=== PATIENT | female | born 1955 | race Caucasian/White ===

== ENCOUNTER 2018-04-17 17:25 | Outpatient (REF) | payer BC, SELFPAY ==
--- NOTE | 2018-04-17 16:00 | PAPFT_PTH ---
PATIENT: Kaila Pascual [facility]: [facility] U#:[id number] AGE/SX: 62/F ROOM: RE04/17/[address]: Thania Carroll : 1955 BED: DIS: 04/17/2018 SPEC #: [id number] RECD: 04/17/18 17:55 STATUS: DARIA RELincoln #: [id number] SOPHIE: 04/17/18 16:[address]: Thania Carroll DEPT: [facility] Cytology RECD BY: Kaila Crump ENTERED: 04/17/18 17:55 SP TYPE: PAPFT OTHR DR: Mónica Vieira Tissues: 1 - CX/ENDOCX FOR PAP SMEARS Procedures: PAP THIN PREP/UVM Screening HPV DNA PROBE Comments: [id number]
== END 2018-04-17 17:45 ==
LOC: NCHCN 17:25
PROVIDERS: PCP Family Medicine; Visit Provider Nurse Practitioner Family
DX: Z00.00 Encounter for general adult medical examination without abnormal findings (principal); Z12.4 Encounter for screening for malignant neoplasm of cervix; Z11.51 Encounter for screening for human papillomavirus (HPV)
CPT/HCPCS: 88142; 87624

== ENCOUNTER 2018-10-15 08:30 | Emergency (ER) | payer BC, SELFPAY ==
[2018-10-15 08:34] VITALS: BP 159/82; PULSE 79; RESP 14; TEMP 36.1; O2SAT 97
--- NOTE | 2018-10-15 08:52 | ED.GENADUL_ITS ---
Discharge Plan Disposition Patient Disposition: HOME Condition: Good Discharge Details Chief Complaint: FlankPain Clinical Impression: Acute UTI Primary Care Provider: Thania Carroll ED Provider: Lobito Katz Home Meds and New Rx's Prescriptions: New nitrofurantoin monohyd/m-cryst [Macrobid] 100 mg capsule 100 mg PO BID 5 Days Qty: 10 RF: 0 Continued fluoxetine [Prozac] 40 MG capsule 40 mg PO DAILY RF: 0 spironolactone [Aldactone] 25 MG tablet 25 mg PO DAILY RF: 0 buspirone 10 MG tablet 10 mg PO BID RF: 0 ergocalciferol (vitamin D2) [Vitamin D2] 50,000 UNIT capsule 1 tab-cap PO DAILY RF: 0 albuterol sulfate [Ventolin HFA] 8 GM HFA aerosol inhaler 1 puff Inhalation Q6H PRN RF: 0 losartan 100 MG tablet 100 mg PO HS Qty: 30 RF: 0 Discharge Instructions Instructions: Urinary Tract Infection in Women (ED) Additional Instructions: Return to the emergency department for any new or significant worsening of symptoms, nausea vomiting fevers, or change in your pain. Otherwise take anabolic's as prescribed and for the full 5 days and feel free to follow-up with your primary care provider as needed for reassessment. Referrals: Thania Carroll [Primary Care Provider] - (As needed for reassessment) Medical Decision Making Patient presenting to the emergency department for chief complaint of right flank pain. Patient states that this is similar in nature to when she has had previous episodes of urinary tract infections. Patient reports approximately 5 days ago she started feeling not well and having some right-sided flank pain. She does state history of kidney stones but this is not been severe but more similar to her episodes of UTI which she does not have any dysuria but does have some urinary frequency. She has been using acetaminophen for some control of discomfort but today did not feel well enough to go to work so decided to p resent to the emergency department. Physical exam shows a afebrile non- tachycardic non-hypotensive patient that appears slightly uncomfortable but not ill or toxic in appearance. Physical exam is unremarkable with no CVA tenderness, no abdominal tenderness, unremarkable cardiac and respiratory exam. Given that patient has had similar symptoms in the past 2 UTI with similar presentation and no worrisome physical exam findings I do feel that urinalysis is all that is warranted initially before ordering labs or any imaging. Patient is agreeable to this and states that she would prefer not to have any CT scans unless absolutely necessary. Patient denies any need of medication pending results Review of urinalysis shows positive for leukocyte esterase but negative for nitrites. Patient does have 10-20 WBCs and some bacteria present. Reflex culture was ordered and given patient's symptoms I do feel that placing patient on antibiotic is warranted. Given the patient has no blood in her urine and no CVA tenderness I doubt infected kidney stone at this time. Close return precautions were discussed at this time with patient and patient placed upon Macrobid. After discussion of diagnosis and plan of care patient has no further needs, questions, or concerns and states clear understanding to return to the emergency department for any worsening symptoms. HPI General Mode of arrival: ambulatory . Date/Time Provider Initiated Documentation: 10/15/18 08:33 . Limitations to Documentation: no limitations . Information obtained by: patient, RN notes reviewed and old records reviewed . History of Present Illness 63 year old F presents to the emergency department with the chief complaint of Flank pain, described as moderate and similar to prior episodes, with intensity rated at 4. Quality is described as aching, and is localized to the right (Flank). Patient started experiencing this day(s) (5) and it has been constant. No relieving factors improve sym ptom(s), No exacerbating factors reported . Patient notes no other symptoms.. Patient did receive the following treatments prior to arrival, other (Acetaminophen) Related Data Home Medications Medication Instructions Recorded Confirmed albuterol sulfate [Ventolin HFA] 1 puff INHALATION Q6H PRN inhaler 04/03/15 10/15/18 NS buspirone 10 mg PO BID NS 04/03/15 10/15/18 ergocalciferol (vitamin D2) 1 tab-cap PO DAILY tab-cap NS 04/03/15 10/15/18 [Vitamin D2] fluoxetine [Prozac] 40 mg PO DAILY tab-cap NS 04/03/15 10/15/18 spironolactone [Aldactone] 25 mg PO DAILY tab-cap NS 04/03/15 10/15/18 losartan 100 mg PO HS #30 tab-cap NS 07/13/17 10/15/18 nitrofurantoin monohyd/m-cryst 100 mg PO BID 5 Days #10 cap 10/15/18 [Macrobid] Previous Rx's Medication Instructions Recorded losartan 100 mg PO HS #30 tab-cap NS 07/13/17 nitrofurantoin monohyd/m-cryst 100 mg PO BID 5 Days #10 cap 10/15/18 [Macrobid] Allergies Allergy/AdvReac Type Severity Reaction Status Date / Time amlodipine Allergy Unverified 05/13/17 17:45 atenolol Allergy Unverified 05/13/17 17:45 bupropion HCl Allergy Unverified 05/13/17 17:45 [From Wellbutrin] fosinopril sodium Allergy Unverified 05/13/17 17:45 [From Monopril] morphine Allergy Unverified 05/13/17 17:45 quinidine Allergy Unverified 05/13/17 17:45 venlafaxine HCl Allergy Unverified 05/13/17 17:45 [From Effexor] ciprofloxacin [From Cipro] AdvReac Severe Unverified 05/13/17 17:45 General Stated Complaint: FlankPain KATHRYN: 3 Review of Systems Constitutional Denies body ache(s), Denies chills, Denies fever(s) and Denies malaise Cardiovascular Denies chest pain Respiratory Reports system reviewed and no additional complaints, except as docu Gastrointestinal Denies abdominal pain, Denies nausea and Denies vomiting Genitourinary Reports as per HPI, Denies hematuria, Reports urinary frequency, Denies dysuria, Reports flank pain and Denies urinary urgency PFSH Social History Do you feel safe in your relationship?: Yes Exam Const General: cooperative and no acute distress Orientation: alert, awake and oriented x3 Resp Effort & Inspection: normal respiratory effort and able to speak in complete sentences Auscultation: clear to auscultation bilaterally Cardio Rate: regular rate Rhythm: regular rhythm Heart Sounds: S1 normal and S2 normal GI Palpation: soft, not firm, no guarding and tender suprapubicly; not at McBurney's point and Figueroa's sign negative Back/Spine/Pelvis Back: no CVA tenderness Neuro General: alert, awake and oriented x3 Extrem General: normal capillary refill Course Vital Signs Temperature 36.1 C L 10/15/18 08:34 Pulse 79 10/15/18 08:34 Respiratory Rate 14 10/15/18 08:34 Blood Pressure 159/82 H 10/15/18 08:34 Pulse Oximetry 97 10/15/18 08:34 Temperature 36.1 C L 10/15/18 08:34 Temperature Source Temporal Artery Scan 10/15/18 08:34 Pulse 79 10/15/18 08:34 Respiratory Rate 14 10/15/18 08:34 Blood Pressure 159/82 H 10/15/18 08:34 Blood Pressure Position Supine 10/15/18 08:34 Pulse Oximetry 97 10/15/18 08:34 Oxygen Delivery Method Room Air 10/15/18 08:34 Oxygen Flow Rate 0 10/15/18 08:34 Pain Level 7 10/15/18 08:34
[2018-10-15 09:14] LABS: Bilirubin Negative (Negative); Blood Negative (Negative); Clarity Clear (Clear); Glucose Negative (Negative); Ketones Negative (Negative); Leukocyte Esterase Small (Negative); Nitrite Negative (Negative); Urobilinogen 0.2 EU/dL (Up TO 0.2)
[2018-10-15 09:23] LABS: Bacteria Few HPF (Negative); C & S Indicated? Yes; Casts Negative LPF (Negative); Crystals Negative HPF (Negative); Epithelial Cells Moderate HPF (Negative); Mucus Negative (Negative); Other Cells Few Renal (Negative); RBC Negative (0-2)
[2018-10-15 09:55] VITALS: BP 136/85; PULSE 81; RESP 16; TEMP 36.7; O2SAT 98
== END 2018-10-15 10:00 | disposition home or self-care (01) ==
PROVIDERS: Emergency Provider Nurse Practitioner Family; PCP Nurse Practitioner Family
DX: N39.0 Urinary tract infection, site not specified (principal); Z87.440 Personal history of urinary (tract) infections
CPT/HCPCS: 99283; 81003; 81015; 87086

== ENCOUNTER 2018-10-17 13:38 | Emergency (ER) | payer BC, SELFPAY ==
[2018-10-17 13:52] VITALS: BP 110/64; PULSE 80; RESP 16; TEMP 36.4; O2SAT 95
--- NOTE | 2018-10-17 14:27 | DI.CT_ITS ---
SYMPTOM/DIAGNOSIS: RIGHT SIDED FLANK PAIN, UTI CT ABDOMEN AND PELVIS: CT scan of the abdomen and pelvis was performed without intravenous or oral contrast material. No acute findings are seen in the lung bases. Lack of IV contrast does limit evaluation of the abdominal and pelvic organs Comparison is 05/13/17 The unenhanced liver is grossly unremarkable. The patient is status post cholecystectomy. No biliary ductal dilatation seen. The pancreas and spleen are unremarkable as is the left adrenal gland. There is again seen a 2.5 cm fat density right adrenal nodule likely reflecting an adenoma. This is unchanged compared to the prior examination. There are bilateral nonobstructing renal stones. No ureterolithiasis or hydronephrosis is seen. There are several hypodense lesions seen within the kidneys likely reflecting cysts. These appear similar compared to the prior examination. There is a 2.5 cm lesion in the inferior pole of the right kidney medially and anteriorly. It is isodense to the renal parenchyma. Previously this area appeared cystic on the CT scan from 05/13/17 and was smaller in size. The urinary bladder is intact. The reproductive organs are unremarkable. There is atherosclerosis of the abdominal aorta but no aneurysmal dilatation is present. No significant abdominal or pelvic adenopathy, ascites or pneumoperitoneum is seen. There is an anterior abdominal wall hernia containing fat. There is diverticulosis of the colon but no evidence of acute diverticulitis. No evidence of bowel obstruction, inflammation or infection. No findings to suggest an acute appendicitis are present. A normal appendix is seen in the right lower quadrant. There is sclerosis seen at the sacroiliac joints consistent with sacral ileitis. There are degenerative changes seen in the spine. IMPRESSION: 1. No evidence of an acute abdomen. 2. 2.5 cm isoechoic mass arising from the inferior aspect of the right kidney anteriorly. Previously this was seen as a cyst on 2018. Further workup is recommended. Post contrast CT scan and/or MRI of the kidneys is recommended. 3. Bilateral nephrolithiasis. No evidence of hydronephrosis. 4. Colonic diverticulosis but no evidence of diverticulitis 5. Stable findings including cholecystectomy, right adrenal mass likely reflecting an adenoma, umbilical hernia
[2018-10-17] MEDS: Normal Saline 1,000 ML 1000 ML IV (14:30)
[2018-10-17 14:45] LABS: Bilirubin Negative (Negative); Blood Negative (Negative); Clarity Clear (Clear); Glucose Negative (Negative); Ketones Trace mg/dL (Negative); Leukocyte Esterase Small (Negative); Nitrite Negative (Negative); Specific Gravity 1.025 (1.005-1.025); Urobilinogen 0.2 EU/dL (Up TO 0.2)
[2018-10-17 15:06] LABS: Abs Immature Grans 0.01 k/cumm (0.0-0.09); Absolute Basophil Count 0.03 k/cumm (0.0-0.2); Absolute Eosinophil Count 0.09 k/cumm (0.0-0.7); Absolute Monocyte Count 0.77 k/cumm (0.11-0.7); Absolute Neutrophil Count 4.17 k/cumm (1.2-6.7); Basophils % 0.4; Eosinophils % 1.2; HCT 43.3 % (36.0-46.0); HGB 14.7 g/dL (12.0-15.5); Immature Grans % 0.1; Lactate 1.7 mmol/L (0.6-1.4); Lymphocytes % 31.2; Mean Corp. HGB Concentration 33.9 g/dL (32.0-36.0); Mean Corpuscular Hemoglobin 30.8 pg (27.0-33.0); Mean Corpuscular Volume 90.6 fL (80-95); Monocytes % 10.4; Neutrophils % 56.7; Platelet Count 304 x1000/uL (130-400); RBC 4.78 m/cumm (4.00-5.20); RBC Distribution Width 12.8 % (11.7-14.6); White Blood Cell Count 7.37 k/cumm (4.4-10.8)
[2018-10-17 15:07] LABS: Bacteria Few HPF (Negative); C & S Indicated? No; Casts Negative LPF (Negative); Crystals Negative HPF (Negative); Epithelial Cells Rare HPF (Negative); Mucus Trace (Negative); Other Cells Rare Renal (Negative); RBC Negative (0-2); WBC 0-2 HPF (0-5)
[2018-10-17 15:28] LABS: Albumin 3.9 g/dL (3.4-5.0); Alkaline Phosphatase 96 U/L (46-116); Anion Gap 10.2 mmol/L (3-11); BUN 15 mg/dL (7-18); Bilirubin, Total 0.4 mg/dL (0.2-1.0); CO2 25.8 mmol/L (21.0-32.0); CREATININE 0.84 mg/dL (0.55-1.02); Chloride 105 mmol/L (98-107); Glucose 125 mg/dL (70-100); Lipase 324 U/L (73-393); Potassium 3.9 mmol/L (3.5-5.1); Sodium 141 mmol/L (136-145); Total Protein 7.9 g/dL (6.4-8.2)
--- NOTE | 2018-10-17 15:28 | W.ED.GENAD ---
Discharge Plan Disposition Patient Disposition: HOME Condition: Good Discharge Details Chief Complaint: Abd Prob Clinical Impression: Abdominal pain, Acute dehydration Primary Care Provider: Thania Carroll ED Provider: Giorgi Correa Home Meds and New Rx's Prescriptions: No Action fluoxetine [Prozac] 40 MG capsule 40 mg PO DAILY RF: 0 spironolactone [Aldactone] 25 MG tablet 25 mg PO DAILY RF: 0 buspirone 10 MG tablet 10 mg PO BID RF: 0 ergocalciferol (vitamin D2) [Vitamin D2] 50,000 UNIT capsule 1 tab-cap PO DAILY RF: 0 albuterol sulfate [Ventolin HFA] 8 GM HFA aerosol inhaler 1 puff Inhalation Q6H PRN RF: 0 losartan 100 MG tablet 100 mg PO HS Qty: 30 RF: 0 nitrofurantoin monohyd/m-cryst [Macrobid] 100 mg capsule 100 mg PO BID 5 Days Qty: 10 RF: 0 acetaminophen [Tylenol Extra Strength] 500 mg Tablet 500 mg PO PRN PRNRF: 0 Discharge Instructions Instructions: Abdominal Pain (ED) Additional Instructions: At this time the CT scan shows no evidence of diverticulitis, or significant abdominal abnormality requiring immediate surgical intervention. Your laboratory work-up is very reassuring. Please make sure you are drinking 10 to 12 cups of water per day, sticking with an easy diet for the next 24 to 48 hours. If you notice any worsening of your symptoms, or any new symptoms such as vomiting, diarrhea, fever, chills, shortness of breath, chest pain, numbness, weakness, or fainting , please return immediately to the emergency department for reevaluation. Please follow up with your primary care provider as soon as possible for reassessment and reevaluation. As always, it was a pleasure participating in your medical care today. Stand Alone Forms: Work Release Referrals: Thania Carroll [Primary Care Provider] - Discharge Data Discharge Date/Time-TO BE ENTERED AT DEPARTURE: 10/17/18 17:09 Medical Decision Making This is a pleasant 50-year-old female who presents today for evaluation of mild right upper quadrant achiness, over the last day, she was recently diagnosed with a urinary tract infection started on Macrobid. She also did have a very brief episode of mild lightheadedness and chills at work today when she stood upright. Exam is relatively unremarkable. She does have very minimal right lower quadrant tenderness on exam. Vital signs are stable. Differential included mesenteric adenitis, appendicitis, hernia or other acute abdominal pathology although differential is highest for mild gastroenteritis due to the patient's benign physical exam findings and reassuring vital signs. Because of the patient's age and risk factors, CT scan was ordered, per radiology no evidence of acute process. She does have some renal cysts, one being slightly atypical. No other acute process otherwise, no evidence of diverticulitis. Laboratory work-up demonstrates no significant abnormality and labs, no white count, no bandemia, renal function stable, lactate minimally elevated at 1.7. The patient was rehydrated with a liter of normal saline. EKG and troponin were benign. Urinalysis shows notable improvement. Of urinary tract infection. With no syncope, recurrent abdominal pain, neurologic deficit, or chest pain, with abdominal pain completely resolved currently on exam I feel that patient likely was suffering from mild dehydration versus mild gastroenteritis. This time I feel that the patient is safe for discharge home. We did discuss observation versus discharge and the patient does feel comfortable going home and would like to go home. I have extensively reviewed the treatment plan and discharge instructions with the patient. I have addressed all patient concerns at this time. The patient was made aware of what symptoms to monitor for that would warrant a return to the emergency department. Discussed the plan with the patient, they demonstrate verbal understanding and agreement with our assessment and plan at this time. EKG 14: 05 Rate 78, intervals normal, sinus rhythm, no signi differentialficant ST elevations or depressions, inverted T wave is present in V1. No significant Q waves. COMPARISON: CT ABD PELVIS WITH CONTRAST 05/13/2017 7:25 PM FINDINGS: Liver: Normal. No mass. Gallbladder and bile ducts: Cholecystectomy. Pancreas: Normal. No ductal dilation. Spleen: Normal. No splenomegaly. 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 Stable. Kidneys and ureters: 2.7 cm or less left renal cysts. Complex cyst versus solid lesion measuring 2.5 cm in the lower pole of the right kidney. It measures field units. This appeared like a cyst on the prior exam. Bilateral nonobstructive renal stones measuring up to 6 mm on the right and 3 mm on the left. Stomach and bowel: Scattered distal colonic diverticula without diverticulitis. Appendix: No evidence of appendicitis. Intraperitoneal space: Normal. No free air. No significant fluid collection. Vasculature: Normal. No abdominal aortic aneurysm. Lymph nodes: Normal. No enlarged lymph nodes. Bladder: Unremarkable as visualized. Reproductive: Unremarkable as visualized. Bones/joints: Degenerative changes in the spine. Bilateral sacroiliitis Soft tissues: umbilical hernia containing fat, uncomplicated. On the prior exam, it contain bowel loops. Left inguinal hernia containing fat, uncomplicated. Stable. IMPRESSION: 1. Cholecystectomy. 2. Degenerative changes in the spine. 3. 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 Stable. 4. 2.7 cm or less left renal cysts. Complex cyst versus solid lesion measuring 2.5 cm in the lower pole of the right kidney. It measures field units. This appeared like a cyst on the prior exam. Consider MRI for further evaluation. 5. Umbilical hernia containing fat, uncomplicated. On the prior exam, it contain bowel loops. 6. Left inguinal hernia containing fat, uncomplicated. Stable. 7. Bilateral nonobstructive renal stones measuring up to 6 mm on the right and 3 mm on the left. 8. Scattered distal colonic diverticula without diverticulitis. 9. Bilateral sacroiliitis Dictated and Authenticated by: Moise Burleson MD. Ordering:NAYANA Rand MD HPI General Date/Time Provider Initiated Documentation: 10/17/18 13:39. HPI Narrative: This is a 63-year-old female with a past medical history of a cholecystectomy, hypertension, high cholesterol, previous kidney stones, known renal cyst, who presents today for evaluation of mild epigastric and right upper quadrant pain. As well as a brief episode of chills and lightheadedness when she is stood up quickly at work today.Patient was recently seen and assessed here 2 days ago, diagnosed with a notable urinary tract infection, started on Macrobid, and has been taking this as directed. She had an episode of chills yesterday, and today developed mild right upper quadrant and right lower quadrant abdominal pain. He denies any vomiting or diarrhea. She has been tolerating fluids well. She has tried to stick with easily palatable foods. She denies any Hematochezia, melena, acholic stool, hematemesis. She denies any chest pain, shortness of breath, or exertional symptoms. Related Data Home Medications Medication Instructions Recorded Confirmed albuterol sulfate [Ventolin HFA] 1 puff INHALATION Q6H PRN inhaler 04/03/15 10/17/18 NS buspirone 10 mg PO BID NS 04/03/15 10/17/18 ergocalciferol (vitamin D2) 1 tab-cap PO DAILY tab-cap NS 04/03/15 10/17/18 [Vitamin D2] fluoxetine [Prozac] 40 mg PO DAILY tab-cap NS 04/03/15 10/17/18 spironolactone [Aldactone] 25 mg PO DAILY tab-cap NS 04/03/15 10/17/18 losartan 100 mg PO HS #30 tab-cap NS 07/13/17 10/17/18 nitrofurantoin monohyd/m-cryst 100 mg PO BID 5 Days #10 cap 10/15/18 10/17/18 [Macrobid] acetaminophen [Tylenol Extra 500 mg PO PRN PRN 10/17/18 10/17/18 Strength] Previous Rx's Medication Instructions Recorded losartan 100 mg PO HS #30 tab-cap NS 07/13/17 nitrofurantoin monohyd/m-cryst 100 mg PO BID 5 Days #10 cap 10/15/18 [Macrobid] Allergies Allergy/AdvReac Type Severity Reaction Status Date / Time amlodipine Allergy Unverified 10/17/18 13:55 atenolol Allergy Unverified 10/17/18 13:55 bupropion HCl Allergy Unverified 10/17/18 13:55 [From Wellbutrin] fosinopril sodium Allergy Unverified 10/17/18 13:55 [From Monopril] morphine Allergy Unverified 10/17/18 13:55 quinidine Allergy Unverified 10/17/18 13:55 venlafaxine HCl Allergy Unverified 10/17/18 13:55 [From Effexor] ciprofloxacin [From Cipro] AdvReac Severe Unverified 10/17/18 13:55 General Stated Complaint: Abd Prob KATHRYN: 3 Review of Systems Review of Systems All systems reviewed & are unremarkable except as noted in HPI and below PFSH Social History Smoking/Tobacco Use Status: Never Drug use: Never Substance use type: does not use Do you feel safe at home: Yes Do you feel safe in your relationship?: Yes Exam Narrative Exam Narrative: 1.Const: Well-nourished, Well-developed, appearing stated age 2.Eyes: PERRL, no conjunctival injection, and symmetrical lids. 3.ENT: Atraumatic external nose and ears. Moist MM. Neck: Symmetric, trachea midline, No thyromegaly. 4.CVS: +S1/S2, No murmurs or gallops. Peripheral pulses 2+ and equal in all extremities. Brisk capillary refill in all extremities. 5.RESP: Unlabored respiratory effort. Clear to auscultation bilaterally. No wheezes rales or rhonchi 6.GI: Soft, Nontender/Nondistended, No hepatosplenomegaly. No guarding or rebound. Minimal subjective right upper quadrant tenderness, no pain at McBurney's point, negative Figueroa sign. Negative obturator and psoas sign 7.MSK: Normocephalic/Atraumatic, Extremities w/o deformity or ttp No cyanosis or clubbing, Normal movement of all extremities 8.Skin: Warm, Dry. No rashes or lesions. 9.Neuro: director statistical programming II-XII grossly intact. Sensation grossly intact, no focal neurologic deficits. 10.Psych: (AAO) x3. Appropriate mood and affect Course Vital Signs Temperature 36.4 C L 10/17/18 13:52 Pulse 80 10/17/18 13:52 Respiratory Rate 16 10/17/18 13:52 Blood Pressure 110/64 10/17/18 13:52 Pulse Oximetry 95 10/17/18 13:52 Temperature 36.4 C L 10/17/18 13:52 Temperature Source Tympanic 10/17/18 13:52 Pulse 80 10/17/18 13:52 Respiratory Rate 16 10/17/18 13:52 Respiratory Effort Non-Labored 10/17/18 15:25 Blood Pressure 110/64 10/17/18 13:52 Blood Pressure Position Sitting 10/17/18 13:52 Pulse Oximetry 95 10/17/18 13:52 Lab/Test Results Lab/Test Results: 10/17/18 15:00 Blood Blood Culture - Pending 10/17/18 15:15 Blood Blood Culture - Pending Laboratory Tests Range/Units 08/28/19 08/28/19 08/28/19 14:33 15:00 15:00 WBC (4.4-10.8) k/cumm 7.37 RBC (4.00-5.20) m/cumm 4.78 Hgb (12.0-15.5) g/dL 14.7 Hct (36.0-46.0) % 43.3 MCV (80-95) fL 90.6 MCH (27.0-33.0) pg 30.8 MCHC (32.0-36.0) g/dL 33.9 RDW (11.7-14.6) % 12.8 Plt Count (130-400) x1000/uL 304 MPV (8.0-11.0) fL 10.0 Immature Gran % 0.1 Neutrophils % 56.7 Lymphocytes % 31.2 Monocytes % 10.4 Eosinophils % 1.2 Basophils % 0.4 Absolute Neutrophils (1.2-6.7) k/cumm 4.17 Absolute Lymphocytes (1.2-3.4) k/cumm 2.30 Absolute Monocytes (0.11-0.7) k/cumm 0.77 H Absolute Eosinophils (0.0-0.7) k/cumm 0.09 Absolute Basophils (0.0-0.2) k/cumm 0.03 Lactate (0.6-1.4) mmol/L 1.7 H Urine Color (Yellow) Yellow Urine Clarity (Clear) Clear Urine pH (5-8) 6.0 Ur Specific [place] (1.005-1.025) 1.025 Urine Protein (Negative) mg/dL Negative Urine Ketones (Negative) mg/dL Trace H Urine Blood (Negative) Negative Urine Nitrite (Negative) Negative Urine Bilirubin (Negative) Negative Urine Urobilinogen (Up TO 0.2) EU/dL 0.2 Ur Leukocyte Esterase (Negative) Small H Urine RBC (0-2) Negative Urine WBC (0-5) HPF 0-2 Ur Epithelial Cells (Negative) HPF Rare Urine Crystals (Negative) HPF Negative Urine Bacteria (Negative) HPF Few Urine Casts (Negative) LPF Negative Urine Mucus (Negative) Trace Urine Other (Negative) Rare renal Ur Culture Indicated? No Urine Glucose (Negative) mg/dL Negative
[2018-10-17 15:29] LABS: Troponin I < 0.05 ng/mL (0.00-0.06)
[2018-10-17 15:58] LABS: ALT 38 U/L (14-59)
[2018-10-17 16:01] LABS: AST 41 U/L (15-37)
--- NOTE | 2018-10-17 16:23 | DI.VRAD_ITS ---
EXAM: CT Abdomen and Pelvis Without Contrast EXAM DATE/TIME: 10/17/2018 2:30 PM CLINICAL HISTORY: 63 years old, female; Other: Rf flank pain, rlq pain TECHNIQUE: Imaging protocol: Computed tomography of the abdomen and pelvis without contrast. COMPARISON: CT ABD PELVIS WITH CONTRAST 05/13/2017 7:25 PM FINDINGS: Liver: Normal. No mass. Gallbladder and bile ducts: Cholecystectomy. Pancreas: Normal. No ductal dilation. Spleen: Normal. No splenomegaly. 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 Stable. Kidneys and ureters: 2.7 cm or less left renal cysts. Complex cyst versus solid lesion measuring 2.5 cm in the lower pole of the right kidney. It measures field units. This appeared like a cyst on the prior exam. Bilateral nonobstructive renal stones measuring up to 6 mm on the right and 3 mm on the left. Stomach and bowel: Scattered distal colonic diverticula without diverticulitis. Appendix: No evidence of appendicitis. Intraperitoneal space: Normal. No free air. No significant fluid collection. Vasculature: Normal. No abdominal aortic aneurysm. Lymph nodes: Normal. No enlarged lymph nodes. Bladder: Unremarkable as visualized. Reproductive: Unremarkable as visualized. Bones/joints: Degenerative changes in the spine. Bilateral sacroiliitis Soft tissues: umbilical hernia containing fat, uncomplicated. On the prior exam, it contain bowel loops. Left inguinal hernia containing fat, uncomplicated. Stable. IMPRESSION: 1. Cholecystectomy. 2. Degenerative changes in the spine. 3. 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 Stable. 4. 2.7 cm or less left renal cysts. Complex cyst versus solid lesion measuring 2.5 cm in the lower pole of the right kidney. It measures field units. This appeared like a cyst on the prior exam. Consider MRI for further evaluation. 5. Umbilical hernia containing fat, uncomplicated. On the prior exam, it contain bowel loops. 6. Left inguinal hernia containing fat, uncomplicated. Stable. 7. Bilateral nonobstructive renal stones measuring up to 6 mm on the right and 3 mm on the left. 8. Scattered distal colonic diverticula without diverticulitis. 9. Bilateral sacroiliitis Dictated and Authenticated by: Moise Burleson MD. Ordering:NAYANA Rand MD
[2018-10-17 17:08] VITALS: BP 116/50; PULSE 70; RESP 16; TEMP 36.5; O2SAT 96
== END 2018-10-17 17:09 | disposition home or self-care (01) ==
PROVIDERS: Emergency Provider Student in an Organized Health Care Education/Training Program; PCP Nurse Practitioner Family
DX: R10.11 Right upper quadrant pain (principal); R10.13 Epigastric pain; E86.0 Dehydration; N28.1 Cyst of kidney, acquired; I10 Essential (primary) hypertension
CPT/HCPCS: 36415; 80053; 83690; 87040; 93005; 96360; 99285; 74176; 81003; 81015; 83605; 84484; 85025; 93010; 99284

== ENCOUNTER 2018-11-29 15:37 | Observation (INO) | payer BC, SELFPAY ==
[2018-11-29] VITALS (20 sets, daily range): BP systolic 125–146; BP diastolic 60–80; PULSE 58–90; RESP 11–21; TEMP 36.8–36.9; O2SAT 94–97
--- NOTE | 2018-11-29 15:48 | ED.GENADUL_ITS ---
Discharge Plan Disposition Patient Disposition: [facility] INPATIENT Condition: Good Discharge Details Chief Complaint: GenMedical Clinical Impression: Chest pain Primary Care Provider: Thania Carroll ED Provider: Giorgi Correa Home Meds and New Rx's Prescriptions: No Action fluoxetine [Prozac] 40 MG capsule 40 mg PO DAILY RF: 0 buspirone 10 MG tablet 10 mg PO BID RF: 0 ergocalciferol (vitamin D2) [Vitamin D2] 50,000 UNIT capsule 1 tab-cap PO DAILY RF: 0 albuterol sulfate [Ventolin HFA] 8 GM HFA aerosol inhaler 1 puff Inhalation Q6H PRN RF: 0 losartan 100 MG tablet 100 mg PO HS Qty: 30 RF: 0 acetaminophen [Tylenol Extra Strength] 500 mg Tablet 500 mg PO PRN PRNRF: 0 Medical Decision Making This is a 63-year-old female with past medical history of h ypertension, high cholesterol, family history of cardiac disease, mitral valve prolapse, who presents today for evaluation of chest pain nausea and left scapular pain. Pain began while at work, she took her blood pressure noted it to be elevated. At the time she arrived in the ED her symptoms have notably improved. She does admit to some exertional chest pain over the last few weeks, but states that she has been trying specifically not to pay attention to these details. She states that she prefers to just focus on work. She was seen by her PCP recently who noted multiple PVCs and recommended outpatient cardiology follow-up, she has not yet had her appointment yet. Physical exam demonstrates no significant abnormalities, vital signs unremarkable. Signs and symptoms are certainly concerning for atypical ACS, EKG does show PVCs but no evidence of STEMI. We will perform troponin assessment, laboratory work-up, chest x-ray and give aspirin. With her notable PVCs, concerning cardiac risk factors, and atypical history I do feel that she would benefit from observation overnight for serial troponins and reassessment. 6 PM Laboratory work-up is returned relatively unremarkable, troponin normal. X-ray negative for acute process. Acute work-up is unremarkable at this time, however with the patient's atypical chest pain symptomatology, notable increase in PVCs, and clinical history and elevated heart score I do feel that she would benefit from serial troponins, stress testing, echocardiogram and further assessment. I discussed the case with the hospitalist Dr. Thomson, he agrees with the assessment and plan. I have extensively reviewed the treatment plan with the patient. I have addressed all patient concerns at this time. I have also discussed the plan with the admitting physician and they agree with the current assessment and plan and have agreed to assume responsibility for the patient. All parties demonstrate verbal understanding and agreement with our assessment and plan at this time. EKG 15: 55 Rate 81, intervals normal, sinus rhythm, frequent premature ectopic beats which seem to be in ratio 4-1. No significant ST elevations, there is some nonspe cific less than [address] depression in V4 and V5. Small Q wave is noted in lead III. No evidence of STEMI. There is also mild flattening nonspecifically in aVL. Review of EKG from 05/11/2017 demonstrates that most of these changes are acute, except the Q wave is old. FINDINGS: Lungs: Unremarkable. No consolidation. Pleural space: Unremarkable. No pleural effusion. No pneumothorax. Heart/Mediastinum: Unremarkable. No cardiomegaly. Bones/joints: Scoliosis and degenerative changes in the spine. IMPRESSION: No acute finding. Thank you for allowing us to participate in the care of your patient. Dictated and Authenticated by: Moise Burleson MD 11/29/2018 4:38 PM Eastern Time ([place] & [place]) HPI General Date/Time Provider Initiated Documentation: 11/29/18 15:46 . HPI Narrative: This is a 63-year-old female with a past medical history of a cholecystectomy, hypertension, high cholesterol, previous kidney stones, known renal cyst, who presents today for evaluation of mild chest pain, associated with mild nausea, and left scapular pain. Patient states that she was at work when she had a symptom. She checked her blood pressure and is noted to be elevated in the 150s over 110. She had mild tightness in her chest with this. By the time she came to the ED her blood pressure had read returned to normal, she had notable resolution of her symptoms. She denies any tearing sensation, ripping sensation, current chest heaviness, arm neck or shoulder pain. She does admit to mild scapular achiness. She denies any current vomiting. She denies any current headache. She denies any other complaints at this time. She does state that she was recently seen by her PCP, EKGs were noted to show frequent PVCs and she was recommended to have close follow-up with cardiology. She has not yet been able to follow-up and will be following up in the [place] with Dr. Serrano. Last time she smoked was when she was 19 years old. She does have a strong family history of cardiac disease. She also does have mitral valve prolapse, hypertension, and high cholesterol. She denies any previous heart attack. She denies any other complaints at this time. No other modifying factors. Also of note the patient does state that over the last few weeks she has noted some chest achiness, primarily with exertion. She states that I try not to think about this at all, and so I do not remember any other details. Related Data Home Medications Medication Instructions Recorded Confirmed albuterol sulfate [Ventolin HFA] 1 puff INHALATION Q6H PRN inhaler 04/03/15 11/29/18 NS buspirone 10 mg PO BID NS 04/03/15 11/29/18 ergocalciferol (vitamin D2) 1 tab-cap PO DAILY tab-cap NS 04/03/15 11/29/18 [Vitamin D2] fluoxetine [Prozac] 40 mg PO DAILY tab-cap NS 04/03/15 11/29/18 losartan 100 mg PO HS #30 tab-cap NS 07/13/17 11/29/18 acetaminophen [Tylenol Extra 500 mg PO PRN PRN 10/17/18 11/29/18 Strength] Previous Rx's Medication Instructions Recorded losartan 100 mg PO HS #30 tab-cap NS 07/13/17 Allergies Allergy/AdvReac Type Severity Reaction Status Date / Time amlodipine Allergy Unverified 11/29/18 15:44 atenolol Allergy Unverified 11/29/18 15:44 bupropion HCl Allergy Unverified 11/29/18 15:44 [From Wellbutrin] fosinopril sodium Allergy Unverified 11/29/18 15:44 [From Monopril] morphine Allergy Unverified 11/29/18 15:44 quinidine Allergy Unverified 11/29/18 15:44 venlafaxine HCl Allergy Unverified 11/29/18 15:44 [From Effexor] ciprofloxacin [From Cipro] AdvReac Severe Unverified 11/29/18 15:44 General Stated Complaint: GenMedical KTAHRYN: 3 Review of Systems Review of Systems ROS Unobtainable: All systems reviewed & are unremarkable except as noted in HPI and below PFSH Social History Smoking/Tobacco Use Status: Never Drug use: Never Substance use type: does not use Do you feel safe at home: Yes Do you feel safe in your relationship?: Yes Exam Narrative Exam Narrative: 1.Const: Well-nourished, Well-developed, appearing stated age 2.Eyes: PERRL, no conjunctival injection, and symmetrical lids. 3.ENT: Atraumatic external nose and ears. Moist MM. Neck: Symmetric, trachea midline, No thyromegaly. 4.CVS: +S1/S2, notable murmur. Peripheral pulses 2+ and equal in all extremities. Brisk capillary refill in all extremities. Pulses equal bilaterally. 5.RESP: Unlabored respiratory effort. Clear to auscultation bilaterally. No wheezes rales or rhonchi 6.GI: Soft, Nontender/Nondistended, No hepatosplenomegaly. No guarding or rebound. 7.MSK: Normocephalic/Atraumatic, Extremities w/o deformity or ttp No cyanosis or clubbing, Normal movement of all extremities 8.Skin: Warm, Dry. No rashes or lesions. 9.Neuro: registered dietitian II-XII grossly intact. Sensation grossly intact, no focal neurologic deficits. 10.Psych: (AAO) x3. Appropriate mood and affect Course Vital Signs Vital signs: Vital Signs Temperature 36.8 C 11/29/18 15:40 Pulse 69 11/29/18 15:40 Respiratory Rate 16 11/29/18 15:40 Blood Pressure 146/72 H 11/29/18 15:40 Pulse Oximetry 97 11/29/18 15:40 Temperature 36.8 C 11/29/18 15:40 Temperature Source Temporal Artery Scan 11/29/18 15:40 Pulse 69 11/29/18 15:40 Respiratory Rate 16 11/29/18 15:40 Blood Pressure 146/72 H 11/29/18 15:40 Blood Pressure Position Supine 11/29/18 15:40 Pulse Oximetry 97 11/29/18 15:40 Oxygen Delivery Method Room Air 11/29/18 15:40 Oxygen Flow Rate 0 11/29/18 15:40 Pain Level 6 10/10/19 15:40
--- NOTE | 2018-11-29 15:59 | DI.RAD_ITS ---
EXAM: XR CHEST 2V PA LATERAL INDICATION: left scapular pain. COMPARISON: CHEST 2 VIEWS PA,LAT from 05/09/2017 TECHNIQUE: 2D digital imaging was performed. FINDINGS: The lungs are well expanded and free of infiltrate. There is no evidence of a pleural effusion. The re is no evidence of a pneumothorax. The heart is not enlarged. Degenereative changes and scoliotic deformity involving the dorsal spine are apparent. There is no evidence of a fracture. IMPRESSION: No acute abnormality is apparent.
[2018-11-29] MEDS: Aspirin 81 MG CHEW 324 MG CH (16:00)
[2018-11-29 16:29] LABS: PTT Activated 26.1 sec (21.0-31.4); Prothrombin Time 10.5 sec (9.3-11.0)
[2018-11-29 16:32] LABS: ALT 21 U/L (14-59); AST 15 U/L (15-37); Abs Immature Grans 0.01 k/cumm (0.0-0.09); Absolute Basophil Count 0.03 k/cumm (0.0-0.2); Absolute Eosinophil Count 0.13 k/cumm (0.0-0.7); Absolute Lymphocyte Count 2.85 k/cumm (1.2-3.4); Absolute Monocyte Count 0.76 k/cumm (0.11-0.7); Absolute Neutrophil Count 3.04 k/cumm (1.2-6.7); Albumin 3.9 g/dL (3.4-5.0); Alkaline Phosphatase 94 U/L (46-116); Anion Gap 7.7 mmol/L (3-11); BUN 13 mg/dL (7-18); Basophils % 0.4; Bilirubin, Total 0.4 mg/dL (0.2-1.0); CO2 28.3 mmol/L (21.0-32.0); CREATININE 0.84 mg/dL (0.55-1.02); Calcium 8.8 mg/dL (8.5-10.1); Chloride 105 mmol/L (98-107); Eosinophils % 1.9; Glucose 119 mg/dL (70-100); HCT 42.4 % (36.0-46.0); HGB 14.1 g/dL (12.0-15.5); Immature Grans % 0.1; Lipase 335 U/L (73-393); Lymphocytes % 41.8; Mean Corp. HGB Concentration 33.3 g/dL (32.0-36.0); Mean Corpuscular Hemoglobin 30.5 pg (27.0-33.0); Mean Corpuscular Volume 91.8 fL (80-95); Mean Platelet Volume 9.9 fL (8.0-11.0); Monocytes % 11.1; Neutrophils % 44.7; Platelet Count 262 x1000/uL (130-400); Potassium 3.8 mmol/L (3.5-5.1); RBC 4.62 m/cumm (4.00-5.20); RBC Distribution Width 12.8 % (11.7-14.6); Sodium 141 mmol/L (136-145); Total Protein 7.8 g/dL (6.4-8.2); Troponin I < 0.05 ng/mL (0.00-0.06); White Blood Cell Count 6.82 k/cumm (4.4-10.8)
--- NOTE | 2018-11-29 16:38 | DI.VRAD_ITS ---
PROCEDURE INFORMATION: Exam: XR Chest, 2 Views Exam date and time: 11/29/2018 4:29 PM Clinical history: 63 years old, female; Other: Lt scapular pain TECHNIQUE: Imaging protocol: XR of the chest Views: 2 views. COMPARISON: CR CHEST 2 VIEWS PA,LAT 05/09/2017 3:18 PM FINDINGS: Lungs: Unremarkable. No consolidation. Pleural space: Unremarkable. No pleural effusion. No pneumothorax. Heart/Mediastinum: Unremarkable. No cardiomegaly. Bones/joints: Scoliosis and degenerative changes in the spine. IMPRESSION: No acute finding. Dictated and Authenticated by: Moise Burleson MD. Ordering:NAYANA Rand MD
[2018-11-29] MEDS: Ketorolac 15 MG/ML VIAL IVP (17:56)
[2018-11-29] MEDS: busPIRone 5 MG TAB 10 MG PO (20:22)
[2018-11-29] MEDS: Enoxaparin 40 MG/0.4 ML SYR SC (20:40)
--- NOTE | 2018-11-29 20:45 | HPE_ITS ---
Date of service: 11/29/18 Time of Service: 20:45 Assessment and Plan Assessment and plan (1) Atypical chest pain: Status: Acute Assessment and plan: Atypical presentation for angina and that the patient has not had exertional chest pain or pressure. She had a normal gated exercise treadmill stress test in May 2017 nevertheless she has multiple risk factors including her age and family history and hypertension. We will continue to monitor her troponin levels tonight and if all come back normal we will plan for a treadmill MPI stress test in the morning along with a cardiology consultation. Because of the elevated blood pressures today along with the pulsating sensation in her chest and the location of her pain in the left suprascapular region I will pursue a CTA of her chest tonight to rule out a thoracic aortic aneurysm. I do not think she needs a CT of her abdomen pelvis that she had one done in September 2018. It was noted at that time she had a 2.5 cm isoechoic mass arising from the inferior aspect of her right kidney anteriorly. This previously appeared as a cystic lesion on a CT scan in May 13, 2017 and was a smaller size. This will need further work-up as an outpatient with a referral to urology. (2) Essential hypertension: Status: Chronic Assessment and plan: Continue current losartan dose. (3) Mitral valve prolapse: Status: Chronic Assessment and plan: Check an echocardiogram in the morning to evaluate for structural heart disease. (4) PVCs (premature ventricular contractions): Status: Acute Assessment and plan: Continue treatment of her MAICO with CPAP. Check TSH and reflex T4. (5) Hypothyroidism (acquired): Status: Chronic Assessment and plan: Check thyroid function tests as above. (6) Obstructive sleep apnea: Status: Chronic Assessment and plan: Continue home CPAP treatment. She did not bring her machine in for tonight. (7) Renal mass: Status: Acute Assessment and plan: Patient was found to have a 2.5 cm isoechoic mass right skin from the inferior aspect of the right kidney anteriorly. This was previously noted on a CT scan on May 13, 2017 at that time was felt to be a cyst. Further evaluation will need to be performed including an MRI scan of the kidneys as an outpatient. History of Present Illness History of Present Illness Chief Complaint: chest pain Narrative: 63-year-old female with a history of asthma, GERD, hypertension, primary hyperpara thyroidism treated with surgery and vitamin D supplementation, mitral valve prolapse, hypothyroidism, obstructive sleep apnea treated with BiPAP who presented emergency department with acute onset of headaches and left suprascapular pulsating pain and chest heaviness. There was no associated dyspnea but there was nausea without vomiting. Discomfort began while at rest shortly after lunch while she was at work. 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 She had a nurse coworker check her blood pressure because she thought her blood pressure was high and found to be elevated at 158/100. When her blood pressure did not come down and she continued to feel uncomfortable with palpitations and chest heaviness along with the pulsating left suprascapular pain she presented emergency department for further evaluation. While in the emergency room she was treated with Toradol. Work-up included chest x-ray and EKG and routine labs. Findings her chest x-ray was remarkable for scoliosis and degenerative changes of the spine but no acute findings. Specifically lungs were clear and heart showed no cardiomegaly. EKG demonstrated sinus rhythm with frequent PVCs occurring in a regular pattern with a PVC about every fifth beat. She had nonspecific T wave abnormality in limb lead aVL which is been present on prior ECG from October 17, 2018. Initial troponin level was less than 0.05. CMP was unremarkable except for glucose of 119. Electrolytes and BUN and creatinine within normal limits LFTs were normal. Pro time and PTT were normal. CBC was unremarkable. Cardiovascular work-up in the past includes gated exercise treadmill from May 26, 2017 that was read as low risk. She went 7 minutes 14 seconds achieving 8.96 METS and a Garza treadmill score 7 which is low risk. She achieved Dio stage II with a peak heart rate of 148 bpm which is 89% of her predicted maximum of 161 bpm with a rate pressure product of 21,080. She has had no recent ec hocardiograms to follow-up her MVP. Because of a recent checkup with her primary care provider Thania Mckeon and ECG was done in the office that demonstrated frequent PVCs and the patient had been referred to a provider relations consultant in [facility], Dr. Huff. She has yet to be seen by the ca rdiologist. She states that her hyperparathyroidism is been under control since her parathyroidectomy and chronic vitamin D suppression therapy. She also has a history of hypothyroidism but does not take any thyroid replacement. Cardiac risk factors include her age as well as a strong family history including her father had a DE in his 60s and paternal uncle who at the age of 48 her mother had hypertension but lived to the age of 81. Multiple family members have had mitral valve prolapse. Patient is a former smoker but had a insignificant smoking history smoking from age 15 to the age of 19 for 1 pack a day. Patient has well-controlled hypertension and well-controlled asthma. She has not used her albuterol inhaler in the last 2 weeks although prior to that she was fighting a cold and using her albuterol fairly frequently. She is now admitted to the hospital for evaluation of atypical chest pain and left shoulder pain. She will undergo CTA of her chest tonight to rule out a thoracic aortic aneurysm given her history of hypertension and pulsating nature of her shoulder and chest pain. Review of Systems Review of Systems ROS Unobtainable: All systems reviewed & are unremarkable except as noted in HPI and below Constitutional Constitutional: Reports as per HPI Cardiovascular Cardiovascular: Reports as per HPI Respiratory Respiratory: Reports as per HPI Gastrointestinal Gastrointestinal: Reports system reviewed and no additional complaints, except as docu [facility] Medical History (Updated 11/29/18 @ 22:05 by Josemanuel Thomson) Adrenal adenoma (Acute) Asthma (Chronic) Essential hypertension (Chronic) GERD (gastroesophageal reflux disease) (Chronic) Hypothyroidism (acquired) (Chronic) Mitral valve prolapse (Chronic) Obstructive sleep apnea (Chronic) Primary hyperparathyroidism (Chronic) Renal cyst (Acute) Surgical History (Updated 11/29/18 @ 21:50 by Josemanuel Thomson) H/O parathyroidectomy (Acute) History of cholecystectomy (Chronic) History of cranioplasty (Acute) History of incisional hernia repair (Acute) S/P BSO (bilateral salpingo-oophorectomy) (Acute) Family History (Updated 11/29/18 @ 21:53 by Josemanuel Thomson) Father Heart disease Mother Hypertension Sister Obstructive sleep apnea Mitral valve prolapse Paternal Uncle Heart disease Social History (Updated 11/29/18 @ 21:55 by Josemanuel Thomson) Smoking/Tobacco Use Status: Former Tobacco Use Pack-years: 4 Details: began smoking age 15 and quit at age 19 Drug use: Never Substance use type: does not use Do you feel safe at home: Yes Do you feel safe in your relationship?: Yes Meds Home Medications and Allergies Home Medications Medication Instructions Recorded Confirmed Type albuterol sulfate [Ventolin HFA] 1 puff INHALATION Q6H PRN inhaler 04/03/15 11/29/18 History NS buspirone 10 mg PO BID NS 04/03/15 11/29/18 History ergocalciferol (vitamin D2) 1 tab-cap PO DAILY tab-cap NS 04/03/15 11/29/18 History [Vitamin D2] fluoxetine [Prozac] 40 mg PO DAILY tab-cap NS 04/03/15 11/29/18 History losartan 100 mg PO HS #30 tab-cap NS 07/13/17 11/29/18 Rx acetaminophen [Tylenol Extra 500 mg PO PRN PRN 10/17/18 11/29/18 History Strength] Allergies Allergy/AdvReac Type Severity Reaction Status Date / Time amlodipine Allergy Unverified 11/29/18 15:44 atenolol Allergy Unverified 11/29/18 15:44 bupropion HCl Allergy Unverified 11/29/18 15:44 [From Wellbutrin] fosinopril sodium Allergy Unverified 11/29/18 15:44 [From Monopril] morphine Allergy Unverified 11/29/18 15:44 quinidine Allergy Unverified 11/29/18 15:44 venlafaxine HCl Allergy Unverified 11/29/18 15:44 [From Effexor] ciprofloxacin [From Cipro] AdvReac Severe Unverified 11/29/18 15:44 Exam Const General: cooperative, no acute distress and well groomed Nutritional Appearance: well nourished Orientation: alert, awake and oriented x3 HENMT Head: normal to inspection, no palpable skull fracture, normocephalic and atraumatic Ears: external ears normal and TM's normal bilaterally General nose exam: external nose normal, nares normal and no nasal discharge Face and sinus: normal facial exam, sinuses nontender and face symmetric Mouth: oral mucosae normal, lip normal, tongue normal, oropharynx normal and moist mucous membranes Teeth and gingiva: dentition normal and gingiva normal Throat: posterior oropharynx normal and uvula midline Eyes General: appearance normal, both eyes and all related structures Alignment and Position: alignment normal Periorbital: periorbital findings normal Eyelids: eyelids normal Conjunctivae: conjunctivae normal Sclera: sclerae normal Cornea: corneas normal Pupils: PERRL, normal by confrontation and accommodation normal EOM: EOM intact bilaterally Direct ophthalmoscopy: normal light reflex, no photophobia, no papilledema, fundi normal bilaterally and anterior chamber normal Neck Neck: normal visual inspection, full ROM, no lymphadenopathy, trachea midline, supple and no JVD Thyroid: thyroid normal Carotids: normal carotid upstroke Lymphatic: no lymphadenopathy noted Chest Chest: normal inspection of the chest and normal palpation of entire chest wall Resp Effort & Inspection: normal respiratory effort and able to speak in complete sentences Auscultation: clear to auscultation bilaterally Percussion: percussion normal Cardio Jugular venous pressure: no JVD Palpation: normal PMI Rate: regular rate Rhythm: abnormal rhythm with ectopic beats Heart Sounds: S1 normal, S2 normal, normal, physiologic split S2 and murmur systolic early, I/ and at the apex Bruits: no abdominal aortic bruits, no carotid bruits and no renal bruits Pulses: normal peripheral pulses GI Inspection: normal to inspection Palpation: soft, no hepatosplenomegaly and nontender Percussion: normal to percussion Auscultation: normal bowel sounds Back/Spine/Pelvis Back: no CVA tenderness Cervical Spine: normal cervical lordosis and cervical ROM normal Thoracic/Lumbar Spine: thoracic and lumbar spine normal to inspection and thoraco-lumbar ROM normal Skin General skin exam: no rashes or lesions noted, elasticity normal and turgor normal Lesions: no lesions Rashes: no rashes Trauma: no lacerations or abrasions Hair: normal Nails: normal Neuro General: alert, awake, oriented x3, moves all extremities and no focal motor deficits Cranial Nerves: CN's II-XI intact bilaterally, PERRL, accommodation normal, EOM intact bilaterally, no nystagmus, facial strength normal, tongue midline, gag reflex normal, hearing normal, able to rotate head bilaterally, able to elevate shoulders bilaterally and Symmetric palate elevation Cognition: normal cognition Speech: speech normal Motor: muscle tone normal throughout, strength 5/5 throughout, no movement abnormalities noted and no fasciculations Sensory Exam: no sensory deficits noted Extrem General: normal to inspection, full ROM, normal capillary refill, no joint enlargement, no clubbing, cyanosis or edema, no pedal edema and no calf tenderness Psych Appearance: grossly normal Mental Status: mental status grossly normal Speech and Movement: speech and movement normal Mood: congruent mood Affect: normal affect Attitude: cooperative Thought Process: normal Thought Content: normal Insight: insight good Judgment: judgment good Results Imaging Chest x-ray: report reviewed EKG: image reviewed Labs Result diagrams: 11/29/18 16:10 11/29/18 16:10 Labs: Laboratory Results - last 24 hr 11/29/18 11/29/18 11/29/18 16:10 16:10 16:10 WBC 6.82 RBC 4.62 Hgb 14.1 Hct 42.4 MCV 91.8 MCH 30.5 MCHC 33.3 RDW 12.8 Plt Count 262 MPV 9.9 Immature Gran % 0.1 Neutrophils % 44.7 Lymphocytes % 41.8 Monocytes % 11.1 Eosinophils % 1.9 Basophils % 0.4 Absolute Neutrophils 3.04 Absolute Lymphocytes 2.85 Absolute Monocytes 0.76 H Absolute Eosinophils 0.13 Absolute Basophils 0.03 PT 10.5 INR 1.0 APTT 26.1 Sodium 141 Potassium 3.8 Chloride 105 Carbon Dioxide 28.3 Anion Gap 7.7 BUN 13 Creatinine 0.84 Estimated GFR/1.73 m2 >= 60.00 Glucose 119 H Calcium 8.8 Total Bilirubin 0.4 AST 15 ALT 21 Alkaline Phosphatase 94 Troponin I < 0.05 Total Protein 7.8 Albumin 3.9 Lipase 335 Last Vital Signs Temp 36.9 C 11/29/18 18:41 Pulse 67 11/29/18 18:41 Resp 20 11/29/18 18:41 BP 145/80 H 11/29/18 18:41 Pulse Ox 96 11/29/18 18:41
[2018-11-29 20:53] LABS: Troponin I < 0.05 ng/mL (0.00-0.06)
[2018-11-29] MEDS: Omnipaque 350 MG/ML 100 ML BTL IJ (22:01)
--- NOTE | 2018-11-29 22:04 | DI.CT_ITS ---
EXAM: CT THORAX CTA CLINICAL HISTORY: chest pain; r/o TAA. TECHNIQUE: The examination was carried out according to the usual protocol with intravenous administ ration of 85 cc Omnipaque 350. COMPARISON: CT ABDOMEN PELVIS WO from 10/17/2018 FINDINGS: There is no evidence of PE. The aorta is somewhat dilated at the aortic root and measures up to 4. 9 cm in diameter. There is nothing to suggest a dissection. There is no evidence of an infiltrate o r pleural effusion or pneumothorax. Heart is not enlarged. Note is made of a heterogeneous thyroid gland. Note is made of a cholecystectomy. Note is made of bilateral renal cysts and measure up to 3 cm in diameter. Right adrenal nodule measures 2.5 cm and appears unchanged. There is no evidence of lymphadenopathy. No acute bony abnormality is seen with note made of a mild scoliosis. The soft tiss ues are unremarkable. IMPRESSION: No evidence of pulmonary embolic disease. There is mild ectasia at the aortic root up to 4.9. Bilate ral renal cysts. Right adrenal nodule is stable.
[2018-11-29] MEDS: Normal Saline 1,000 ML 100 ML IV (22:23)
[2018-11-29] MEDS: Normal Saline Flush 10 ML SYR IVP (22:24)
--- NOTE | 2018-11-29 22:38 | DI.VRAD_ITS ---
PROCEDURE INFORMATION: Exam: CT Angiography Chest With Contrast Exam date and time: 11/29/2018 9:57 PM Clinical history: 63 years old, female; Chest pain; Type not specified TECHNIQUE: Imaging protocol: Computed tomographic angiography of the chest with intravenous contrast. 3D rendering: MIP reconstructed images were created and reviewed. Radiation optimization: All CT scans at this facility use at least one of these dose optimization techniques: automated exposure control; mA and/or kV adjustment per patient size (includes targeted exams where dose is matched to clinical indication); or iterative reconstruction. Contrast material: [id number]; Contrast volume: 85 ml; Contrast route: IV LAC 18G; COMPARISON: CTA THORAX 05/09/2017 9:03 PM FINDINGS: Pulmonary arteries: Normal. No pulmonary emboli. Aorta: Mild dilation of aortic root up to 4.9 cm. Thyroid: Heterogeneous thyroid gland. Lungs: Unremarkable. No consolidation. No masses. Pleural space: Unremarkable. No pneumothorax. No pleural effusion. Heart: Unremarkable. No cardiomegaly. No pericardial effusion. Gallbladder and bile ducts: Cholecystectomy. Adrenals: Nonspecific right adrenal nodule measuring 2.5 cm and 20 Hounsfield units. Kidneys and ureters: Bilateral renal cysts measuring up to 3 cm. Lymph nodes: Unremarkable. No enlarged lymph nodes. Bones/joints: Mild scoliosis. No acute fracture. Soft tissues: Unremarkable. IMPRESSION: No pulmonary embolism. No aortic dissection. Mild dilation of aortic root up to 4.9 cm. This is slightly progressed. Bilateral renal cysts measuring up to 3 cm. stable. Nonspecific right adrenal nodule measuring 2.5 cm and 20 Hounsfield units. Stable. Dictated and Authenticated by: Moise Burleson MD. Ordering:[facility] Alix Abernathy MD
[2018-11-29 23:55] LABS: Troponin I < 0.05 ng/mL (0.00-0.06)
[2018-11-30] VITALS (9 sets, daily range): BP systolic 127–168; BP diastolic 65–81; PULSE 67–103; RESP 16–20; TEMP 36–37; O2SAT 96–99
[2018-11-30] MEDS: Ondansetron 4 MG/2 ML VIAL IVP (06:15)
[2018-11-30] MEDS: Normal Saline Flush 10 ML SYR IVP (06:15)
--- NOTE | 2018-11-30 07:05 | NUR.NOTE ---
Nursing Note: 0600 11/30/18- pt got up to void and got a headache when standing up. felt nauseous next. after getting back into bed pt still very nauseous and felt tingling in left arm. pt denied chest pain or any pain at all other than her normal back pain. vitals signs in worklist. pt felt relief after getting zofran.
[2018-11-30 07:33] LABS: Troponin I < 0.05 ng/mL (0.00-0.06)
[2018-11-30 07:40] LABS: TSH (W/Ref FT4) 2.82 uIU/mL (0.36-3.74)
[2018-11-30] MEDS: Normal Saline 1,000 ML 100 ML IV (07:59)
[2018-11-30] MEDS: busPIRone 5 MG TAB 10 MG PO (07:59)
[2018-11-30] MEDS: FLUoxetine 20 MG CAP 40 MG PO (07:59)
[2018-11-30] MEDS: Losartan 50 MG TAB 100 MG PO (07:59)
[2018-11-30] MEDS: Acetaminophen 325 MG TAB PO (09:00)
--- NOTE | 2018-11-30 11:02 | PDOC.CMIN ---
- If Service Date Differs Date of service: 11/30/18 Time of Service: 11:02 Care Management Initial Assess REASON FOR HOSPITALIZATION:: atypical chest pain PAST MEDICAL HISTORY/PAST SURGICAL HISTORY:: Medical History: Adrenal adenoma (Acute). Asthma (Chronic). Essential hypertension (Chronic). GERD (gastroesophageal reflux disease) (Chronic). Hypothyroidism (acquired) (Chronic). Mitral valve prolapse (Chronic). Obstructive sleep apnea (Chronic). Primary hyperparathyroidism (Chronic). Renal cyst (Acute). Surgical History: H/O parathyroidectomy (Acute). History of cholecystectomy (Chronic). History of cranioplasty (Acute). History of incisional hernia repair (Acute). S/P BSO (bilateral salpingo-oophorectomy) (Acute) PREVIOUS FUNCTIONAL STATUS/SOCIAL/FAMILY SUPPORTS:: Kaila lives in [place], [place] with her spouse Janak. 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 Kalia and Janak have 2 children and grown grandchildren. They all live in the area and are very supportive. Kaila is independent at baseline and performs all ADLs and activities. CURRENT FUNCTIONAL STATUS:: Kaila was sitting up in bed chatting with her when CM came to meet with her. She was pleasant and cooperative and readily engaged in conversation with CM. Kaila shared some of the events that lead to her hospital stay. She has had previous issues with her heart valves and is concerned about any cardiac symptoms. She will have an Echocardiogram today and probably a stress test as an outpatient. ADVANCE DIRECTIVES:: None on file Has patient been provided with information about the portal?: No Did the patient sign up for the portal?: No CODE STATUS:: Full Code INSURANCE COVERAGE / FINANCIAL ISSUES:: [employer] CURRENT HOME/COMMUNITY SERVICES/EQUIPMENT:: CPAP PRIMARY CARE PHYSICIAN:: Thania Carroll POTENTIAL DISCHARGE NEEDS:: follow up with PCP and Cardiology, OP stress test, OP MRI of kidneys PATIENT/FAMILY EDUCATION NEEDS:: Discharge plan, limitations, follow up plan, Ask Me Three. ANTICIPATED BARRIERS TO DISCHARGE:: none TRANSPORTATION:: via private vehicle with when ready PLAN:: Kaila is undergoing a cardiac workup following an episode of chest pain which brought her to the hospital. She will likely be discharged home with no services. CM will continue to provide support to patient, family and discharge planning process.
--- NOTE | 2018-11-30 11:55 | PHARADMIT ---
Admission Pharmacy Clinical Review CHEST PAIN Code Status Full Code Current Weight Wgt-87.4 kg Renally Cleared and Narrow Therapeutic Index Meds CrCl~ 50.5 mL/min Meds-OK QTc Value / Action Taken QTc-454 (Prozac, Zofran BP Control, Fever BP-127/69 Tmax- 36.9C Electrolytes reviewed none DVT Prophylaxis Lovenox 40mg Opiate Usage / Scheduled Bowel Regimen Ordered No Yes Plt/SCr for Heparin / Enoxaparin Plts-262 SCr-0.84 INR for Warfarin inr-1.0 H/H stable, WBC/Bands H&H- 14.1/42.4 WBC- 6.82 Antibiotic appropriateness none Cultures and Sensitivities none Surgical ABX d/c within 24 hr na DM control / Insulin Dosing BG- 119 Heart Failure (Check EF%) (LAINE's, B-Block, Diuretics) Losartan, NTG IV to PO Switch No Home Meds Reviewed Yes Home Meds Not Ordered All ordered Comments
--- NOTE | 2018-11-30 13:38 | HOME_ITS ---
Home Ventilator Equipment Home care company Ele Reason: Obstructive Sleep Apnea Make: ResMed Model: AirSense 10 Mask type: Nasal pillows Mask size: Small Mode: CPAP Settings: MAX 10 MIN 5 Oxygen bleed in (lpm): 0 Condition: Good Date last checked: 11/30/18 Year of last sleep study: Compliance Daily Comments: Pt had new supplies for machine
--- NOTE | 2018-11-30 13:45 | DI.US_ITS ---
APPROVED REPORT EXAM: Comprehensive 2D, Doppler, and color-flow Echocardiogram Patient Location: In-Patient Room/Bed: 214A Social Organization Professor: Cherrie Laguna [facility] ([place]) Indications: Chest pain, Frequent PVC's Left Ventricle The left ventricle is normal. The left ventricular systolic function is normal. The left ventricular ejection fraction is within the normal range. The posterior wall thickness is normal. There is normal LV segmental wall motion. Evidence of elevated filling pressures with annulus reversus. No evidence of respiratory variation of mitral inflow pattern LVEF is 50-55%. Right Ventricle The right ventricle is normal size. The right ventricular systolic function is normal. Atria The left atrium is mildly dilated. The right atrium size is normal. Aortic Valve The aortic valve is normal in structure. There is no aortic valvular stenosis. Moderate aortic regurg itation. Mitral Valve The mitral valve is normal in structure. No evidence of mitral valve stenosis. Mild mitral regurgitat ion. Tricuspid Valve The tricuspid valve is normal in structure. There is no tricuspid valve stenosis. Mild tricuspid regu rgitation. Pulmonic Valve Pulmonic valve is not well visualized. Trace pulmonic regurgitation. Great Vessels The aortic root size is dilated (4.2cm). The ascending aorta size is dilated. IVC is normal in size a nd collapses >50% with inspiration. Pericardium There is no pericardial effusion. 2D Dimensions IVSd 0.9 cm F: 0.6-1.0 PWd 0.9 cm F: 0.6 - 1.0 LVDd 4.9 cm F: 3.9 - 5.3 LVDs 3.5 cm F: 2.2 - 3.5 Aortic Root 4.4 cm F: 2.7 - 3.3 Left Atrium 4.1 cm F: 2.7 - 3.8 LVOT 2.1 cm (M/F) 1.5-2.5 Ascending Aorta 3.7 cm F: 2.3 - 3.1 LVEF (Teich) 53.0 % LV Diastology E/A Ratio 0.9 Aortic Valve LVOT Area 3.5 cm2 LVOT Peak Alli. 0.8 m/s LVOT Mean Alli. 0.6 m/s LVOT Peak Gr. 2.8 mmHg LVOT Mean Gr. 1.5 mmHg AoV Peak Alli. 1.3 (0.5-1.3 m/s) AoV Mean Alli. 1.1 m/s AO Peak GR. 7.8 mmHg AO Mean GR. 4.8 (<5 mmHg) ISAMAR (VTI) 2.0 (2.5-4.5 cm2) Mitral Valve MV E Max Alli. 0.6 (0.4-1.3 m/s) MV A Velocity 0.7 (0.4-1.3 m/s) Pulmonary Valve PV Peak Velocity 0.8 (0.5-1.5 m/s) Tricuspid Valve TR P. Velocity 2.3 m/s TR P. Gradient 21.8 mmHg Conclusion Left Ventricle : The left ventricle is normal. The left ventricular systolic function is normal. The left ventricular ejection fraction is within the normal range. LVEF is 50-55%. There is normal LV seg mental wall motion. Evidence of elevated filling pressures with annulus reversus. No evidence of res piratory variation of mitral inflow pattern Right Ventricle : The right ventricle is normal size. The right ventricular systolic function is norm al. Atria : The left atrium is mildly dilated. The right atrium size is normal. Aortic Valve : The aortic valve is normal in structure. Moderate aortic regurgitation. There is no ao rtic valvular stenosis. Mitral Valve : The mitral valve is normal in structure. Mild mitral regurgitation. No evidence of liliya ral valve stenosis. Tricuspid Valve : The tricuspid valve is normal in structure. Mild tricuspid regurgitation. RVSP is within normal limits Pulmonic Valve : Pulmonic valve is not well visualized. Great Vessels : The aortic root size is dilated (4.2cm). Pericardium : There is no pericardial effusion. Great Vessels : IVC is normal in size and collapses >50% with inspiration. There is no prior echocardiogram for comparison.
--- NOTE | 2018-11-30 16:35 | W.PM.DS.N ---
Date of service: 11/30/18 Time of Service: 16:35 DS: Diagnosis Discharge Diagnosis (1) Atypical chest pain: Status: Acute (2) Essential hypertension: Status: Chronic (3) Mitral valve prolapse: Status: Chronic (4) PVCs (premature ventricular contractions): Status: Acute (5) Hypothyroidism (acquired): Status: Chronic (6) Obstructive sleep apnea: Status: Chronic (7) Renal mass: Status: Acute Asessment and Plan: Will need MRI abdomen on discharge Discharge Plan Disposition Patient Disposition: HOME Condition: Stable Discharge Details Chief Complaint: Chest Pain Clinical Impression: Chest pain Reason For Visit: CHEST PAIN Admit Date/Time: 11/29/18 17:31 Admit Provider: Josemanuel Thomson Attending Provider: Josemanuel Thomson Primary Care Provider: Thania Carroll ED Provider: Giorgi Correa Hospital Course Hospital Course: Ms Pascual is a 63 year old female with PMHx of mitral valve prolapse, hypertension, GERD, MAICO, on CPAP, asthma, renal mass, who was observed on [facility] hospitalist service from 11/29/18 until 11/30/18 for atypical chest pain accompanied by nausea and radiation to the scapula. The patient had quite a few PVC's/bigeminy with otherwise sinus rhythm sometimes down to 46 and once up to 120's on telemetry, but never did she have Vtach or any other arrhythmias. Her troponins were negative. Echocardiogram was done - however, we are unable to obtain a read until 12/03/18. Ideally, the patient would have an MPI stress test in the near future. The soonest we could do it on in-patient basis would be 12/03/18, but the patient chooses to do it as an outpatient, for which her PCP would have to obtain prior authorization. The patient is being discharged home on aspirin, atorvastatin (her lipid studies are not yet back at the time of discharge; PCP is to follow up) with a halter monitor, and a follow up appointment with her PCP on 12/03/18 at 11:30 am. The patient is medically stable for discharged at this time but is advised to return to the hospital if she has any more chest pain. PCP is also asked to follow up R adrenal nodule and bilateral renal cysts - consider MRI. Home Meds and New Rx's Prescriptions: New nitroglycerin [Nitrostat] 0.4 mg Tablet, Sublingual 0.4 mg sublingual Q5 MIN PRN X3 PRN (Reason: chest pain) Qty: 20 RF: 0 aspirin 81 mg tablet,chewable 81 mg PO DAILY Qty: 30 RF: 0 atorvastatin 20 mg tablet 20 mg PO QHS Qty: 30 RF: 0 Continued fluoxetine [Prozac] 40 MG capsule 40 mg PO DAILY RF: 0 buspirone 10 MG tablet 10 mg PO BID RF: 0 ergocalciferol (vitamin D2) [Vitamin D2] 50,000 UNIT capsule 1 tab-cap PO DAILY RF: 0 albuterol sulfate [Ventolin HFA] 8 GM HFA aerosol inhaler 1 puff Inhalation Q6H PRN RF: 0 losartan 100 MG tablet 100 mg PO HS Qty: 30 RF: 0 acetaminophen [Tylenol Extra Strength] 500 mg Tablet 500 mg PO PRN PRNRF: 0 Discharge Instructions Instructions: Cardiac Stress Test (DC), Chest Pain (DC) Additional Instructions: Return to the hospital with any fever, bleeding, chest pain, or shortness of breath. If you are experiencing chest pain, try taking nitroglycerin to see if it helps, but also go to the emergency room. Follow up with your PCP on 12/03/18 at 11:30. Stand Alone Forms: Nursing Discharge Form Referrals: Thania Carroll [Primary Care Provider] - 12/03/18 10:00 am Activity:: Activity as Tolerated Equipment/Supplies:: No Equipment Needed Diet:: Low Sodium Discharge Orders Discharge Orders: Discharge Order (Routine); Ordered 11/30/18 Ordered By: Ayde Albarado Other Ambulatory Orders: NM MPI rest & stress grp (Routine) Timeframe: 20181203 Facility: [facility] - Location: CARDIAC LAB Ordered By: Ayde Albarado Cardiac Event Recorder (Outpt) (ONCE) Timeframe: 20181201 Facility: [facility] - Location: Respiratory Therapy Ordered By: Ayde Albarado DS: Summary Status at Discharge Functional status at discharge: independent ambulation Overall status at discharge: patient is back to baseline Mental Status: mental status grossly normal Speech and Movement: speech and movement normal Mood: congruent mood Affect: normal affect Exam Narrative Exam Narrative: General: very pleasant obese female, A&OX3, sitting up at the edge of the bed HEENT: EOMI, MMM Heart: RRR with occasional extra beat, ? quiet murmur Lungs: CTAB GI: abdomen is soft, nontender, nondistended Extremities; trace edema BLE's, no c/c Psych Mental Status: mental status grossly normal Speech and Movement: speech and movement normal Mood: congruent mood Affect: normal affect DS: Data Vitals/I&O Vitals and I&O: Vital Signs Temperature 37 C 11/30/18 15:15 Temperature Source Tympanic 11/30/18 15:15 Pulse 72 11/30/18 15:37 Pulse Rhythm Regular 11/30/18 14:50 Pulse 82 11/29/18 18:20 Respiratory Rate 16 11/30/18 15:15 Respiratory Effort Non-Labored 11/30/18 14:50 Respiratory Depth Normal 11/30/18 14:50 Respiratory Pattern Normal 11/30/18 14:50 Blood Pressure 137/65 11/30/18 15:15 Blood Pressure Mean 83 11/29/18 18:01 Blood Pressure Position Supine 11/29/18 15:40 Pulse Oximetry 96 11/30/18 15:15 Oxygen Delivery Method Room Air 11/30/18 15:15 Oxygen Flow Rate 0 11/30/18 15:15 Fraction of Inspired Oxygen (FIO2) 21 11/30/18 13:54 Pain Level 0 11/30/18 15:15 Intake & Output 11/29/18 11/30/18 11/30/18 23:59 11:59 23:59 Intake Total 1440 / 2458.333 1018.333 / 2458.333 Output Total 600 / 600 1800 / 2300 500 / 2300 Balance -600 / -600 -360 / 158.333 518.333 / 158.333 Weight 88.1 kg 87.4 kg Intake: IV 960 / 1738.333 778.333 / 1738.333 Oral 480 / 720 240 / 720 Output: Urine 600 / 600 1800 / 2300 500 / 2300 Other: Urine Color Yellow Yellow Yellow Urine Appearance Clear Clear Clear Urine Odor None Normal Normal Comment pt voiding independently. reports no issues. Voiding Methods Toilet Toilet Toilet Data Completed and Pending Completed studies during hospitalization [Text1]: CXR: No acute abnormality is apparent. CTA chest: No evidence of pulmonary embolic disease. There is mild ectasia at the aortic root up to 4.9. Bilateral renal cysts. Right adrenal nodule is stable. Pending studies at discharge: Echocardiogram read Fasting lipid panel Labs on day of discharge: Labs from last 24 hours 11/30/18 11/30/18 11/29/18 06:45 06:45 23:30 Troponin I < 0.05 < 0.05 TSH 2.82 11/29/18 19:50 Troponin I < 0.05 TSH [facility] Medical History (Updated 11/29/18 @ 22:05 by Josemanuel Thomson) Adrenal adenoma (Acute) Asthma (Chronic) Essential hypertension (Chronic) GERD (gastroesophageal reflux disease) (Chronic) Hypothyroidism (acquired) (Chronic) Mitral valve prolapse (Chronic) Obstructive sleep apnea (Chronic) Primary hyperparathyroidism (Chronic) Renal cyst (Acute) Surgical History (Updated 11/29/18 @ 21:50 by Josemanuel Thomson) H/O parathyroidectomy (Acute) History of cholecystectomy (Chronic) History of cranioplasty (Acute) History of incisional hernia repair (Acute) S/P BSO (bilateral salpingo-oophorectomy) (Acute) Family History (Updated 11/29/18 @ 21:53 by Josemanuel Thomson) Father Heart disease Mother Hypertension Sister Obstructive sleep apnea Mitral valve prolapse Paternal Uncle Heart disease Social History (Updated 11/29/18 @ 21:55 by Josemanuel Thomson) Smoking/Tobacco Use Status: Former Tobacco Use Pack-years: 4 Details: began smoking age 15 and quit at age 19 Drug use: Never Substance use type: does not use Do you feel safe at home: Yes Do you feel safe in your relationship?: Yes
[2018-11-30] MEDS: Aspirin E.C. 81 MG TABEC PO (17:04)
[2018-11-30 18:29] LABS: Calculated LDL 133 mg/dL; Cholesterol 212 mg/dL (50-200); HDL Cholesterol 51 mg/dL (40-60); Triglyceride 140 mg/dL (30-150)
== END 2018-11-30 17:47 | disposition home or self-care (01) ==
LOC: ER 18:02 → MS 18:26
PROVIDERS: Admitting Provider Internal Medicine; Emergency Provider Student in an Organized Health Care Education/Training Program; PCP Nurse Practitioner Family; Visit Provider Internal Medicine
DX: R07.89 Other chest pain (principal); I10 Essential (primary) hypertension; I34.1 Nonrheumatic mitral (valve) prolapse; I49.3 Ventricular premature depolarization; E03.9 Hypothyroidism, unspecified; G47.33 Obstructive sleep apnea (adult) (pediatric); N28.89 Other specified disorders of kidney and ureter; E89.2 Postprocedural hypoparathyroidism; J45.909 Unspecified asthma, uncomplicated; K21.9 Gastro-esophageal reflux disease without esophagitis
CPT/HCPCS: 36415; 71275; 80053; 80061; 83690; 93005; 96374; 99217; 99220; 99285; J1650; 71046; 84443; 84484; 85025; 85610; 85730; 93010; 93225; 93306; G0378; J1885; J2405; J3490

== ENCOUNTER 2018-12-03 10:58 | Outpatient (CLI) | payer BC, SELFPAY ==
--- NOTE | 2018-12-03 12:40 | W.HOLTRPT ---
Holter Monitor Report Holter Monitor Note: This is a 48-hour Holter monitor ordered for palpitations. ?Sinus rhythm with an average heart rate of 77 bpm (minimum of 50 bpm?maximum 120 bpm) ?There were rare (less than 1%) isolated premature atrial contractions. ?There were no runs of supraventricular tachycardia ?There were frequent (7.2%) single ventricular premature beats. There were 7 couplets and no triplets ?There were no episodes of ventricular tachycardia ?Diary events were associated with sinus rhythm premature ventricular beats. ?There were no significant pauses, no episodes of heart block, no episodes of atrial fibrillation
== END 2018-12-03 11:18 ==
PROVIDERS: PCP Nurse Practitioner Family; Visit Provider Nurse Practitioner Family
DX: R00.2 Palpitations (principal); I49.1 Atrial premature depolarization; I49.3 Ventricular premature depolarization
CPT/HCPCS: 93226

== ENCOUNTER 2019-04-16 15:44 | Outpatient (REF) | payer BC, SELFPAY ==
[2019-04-16 19:00] LABS: Anion Gap 11.9 mmol/L (3-11); BUN 15 mg/dL (7-18); CO2 25.1 mmol/L (21.0-32.0); CREATININE 0.74 mg/dL (0.55-1.02); Calcium 9.2 mg/dL (8.5-10.1); Chloride 104 mmol/L (98-107); Glucose 107 mg/dL (74-106); Potassium 3.7 mmol/L (3.5-5.1); Sodium 141 mmol/L (136-145)
== END 2019-04-16 16:04 ==
LOC: NCHCN 15:44
PROVIDERS: PCP Nurse Practitioner Family; Visit Provider Nurse Practitioner Family
DX: I10 Essential (primary) hypertension (principal)
CPT/HCPCS: 80048

== ENCOUNTER 2019-09-06 11:45 | Outpatient (REF) | payer BC, SELFPAY ==
[2019-09-06 19:18] LABS: Bilirubin Negative (Negative); Blood Negative (Negative); Clarity Clear (Clear); Glucose Negative (Negative); Ketones Negative (Negative); Leukocyte Esterase Large (Negative); Nitrite Negative (Negative); Specific Gravity 1.015 (1.005-1.025); Urobilinogen 0.2 EU/dL (Up TO 0.2)
[2019-09-06 19:48] LABS: Bacteria Few HPF (Negative); C & S Indicated? C&S Done As Ordered; Casts Negative LPF (Negative); Crystals Negative HPF (Negative); Epithelial Cells Few HPF (Negative); Mucus Negative (Negative); RBC 0-2 HPF (0-2); WBC 20-50 HPF (0-5)
== END 2019-09-06 12:05 ==
LOC: NCHCN 11:45
PROVIDERS: PCP Nurse Practitioner Family; Visit Provider Nurse Practitioner Family
DX: N39.0 Urinary tract infection, site not specified (principal)
CPT/HCPCS: 81003; 81015; 87086

== ENCOUNTER 2019-09-13 04:04 | Outpatient (CLI) | payer BC, SELFPAY | END 2019-09-13 04:24 | PROVIDERS: PCP Nurse Practitioner Family; Visit Provider Nurse Practitioner Gerontology | DX: R69 Illness, unspecified (principal) | CPT/HCPCS: 82565 ==

== ENCOUNTER 2019-09-16 13:14 | Outpatient (CLI) | payer BC, SELFPAY ==
--- NOTE | 2019-09-16 | DI.CT_ITS ---
EXAM: CT ABDOMEN PELVIS WO/W TECHNIQUE: Imaging Protocol: Axial computed tomography images with coronal and sagittal reformatted images were created and reviewed CONTRAST MATERIAL: Intravenous: Omnipaque 350 Contrast volume:100 ml Contrast route:IV - Oral:no COMPARISON: CT ABD PELVIS WITH CONTRAST from 05/13/[address] ABDOMEN PELVIS WO from 10/17/[address] THORAX CTA from 11/29/2018 FINDINGS: ABDOMEN: Lung Bases: Normal where visualized. Mild cardiac enlargement. Liver: Normal density. No measurable mass. Gallbladder and biliary tract: Status post cholecystectomy. No dilation. Pancreas: Normal density, no abnormal calcifications or inflammatory process. Spleen: Normal. Kidneys: Bilateral nonobstructing stones are again noted. There is a hyperdense cyst of the left kid russell. Multiple bilateral renal cysts are noted. There are no suspicious masses. There is no evidenc e of hydronephrosis. Adrenal glands: Stable low-density right adrenal nodule.. Lymph nodes: Within normal limits. Abdominal Aorta: Abdominal portion non-dilated. The aorta at the thoraco- abdominal junction is tort uous. There is an aortic dissection beginning at the lower thoracic aorta extending throughout the a bdominal aorta and into the right common iliac artery. There is no significant mural thrombus or wal l calcification.. PELVIS: Bladder: Symmetric distention, no gross wall thickening. No stones. No mass. Bowel: No obstruction or bowel wall thickening. Mild diverticulosis. Normal appendix. Peritoneal cavity: No ascites, collection or mesenteric inflammatory response. Soft tissues: Stable fatty containing umbilical hernia. There is a 6. 2 by 4.7 x 4.1 centimeter smoo thly marginated low-density collection located anterior to the right femoral artery. It does not teresa ear to represent an aneurysm or pseudoaneurysm. It could be a seroma related to previous procedure o r trauma. Bones: Mild degenerative changes.. Reproductive organs: Within normal limits. IMPRESSION: 1. Aortic dissection without evidence of aneurysm. 2. Bilateral nonobstructing renal calculi and multiple bilateral renal cysts. 3. Right groin cystic lesion could represent a seroma. RADIATION DOSE DELIVERED: Total DLP DATA REPOSITORY: All CT scans at this facility are submitted to the National Radiology Data Registry (NRDR) Dose Index Registry (DIR) with the [employer] (ACR). RADIATION OPTIMIZATION: All CT scans at this facility use at least one of these dose optimization te chniques: automated exposure control; mA and/or kV adjustment per patient size (includes targeted exa ms where dose is matched to clinical indication); or iterative reconstruction.
[2019-09-16] MEDS: Normal Saline - Diluent 50 ML VIAL IV ×3 (15:51→15:59)
[2019-09-16] MEDS: Omnipaque 350 MG/ML 100 ML BTL IJ (15:51)
== END 2019-09-16 13:34 ==
PROVIDERS: PCP Nurse Practitioner Family; Visit Provider Nurse Practitioner Gerontology
DX: R31.9 Hematuria, unspecified (principal); I71.03 Dissection of thoracoabdominal aorta; N20.0 Calculus of kidney; Q61.02 Congenital multiple renal cysts
CPT/HCPCS: 74178; 82565; J3490

== ENCOUNTER 2019-10-18 16:46 | Emergency (ER) | payer BC, SELFPAY ==
[2019-10-18] VITALS (60 sets, daily range): BP systolic 113–153; BP diastolic 49–79; PULSE 60–93; RESP 14–23; TEMP 36.7; O2SAT 95–100
--- NOTE | 2019-10-18 16:45 | RT.EKG_ITS ---
APPROVED REPORT Exam: Resting ECG Patient Location: E HR:72 bpm ECG Measurements Heart Rate 72 AXIS GA 178 P 51 QRSd 97 QRS 59 QT 402 T 86 QTc 440 Conclusion Sinus rhythm...normal P axis, V-rate 60- 99 Ventricular premature complex...V complex w/ short R-R interval twave inv avL
--- NOTE | 2019-10-18 17:09 | W.ED.GENAD ---
Discharge Plan Disposition Patient Disposition: HOME Condition: Stable Discharge Details Chief Complaint: Nausea/Vomit/Diar Clinical Impression: Nausea, Diverticulosis of colon without diverticulitis Primary Care Provider: Thania Carroll ED Provider: Kayleigh Nguyen Home Meds and New Rx's Prescriptions: New ondansetron HCl [Zofran] 4 mg tablet 4 mg PO TID PRN (Reason: nausea and vomiting) 5 Days Qty: 7 RF: 0 Continued metoprolol tartrate 25 mg tablet 25 mg PO BID RF: 0 fluoxetine [Prozac] 40 MG capsule 40 mg PO DAILY RF: 0 buspirone 10 MG tablet 10 mg PO BID RF: 0 ergocalciferol (vitamin D2) [Vitamin D2] 50,000 UNIT capsule 1 tab-cap PO DAILY RF: 0 albuterol sulfate [Ventolin HFA] 8 GM HFA aerosol inhaler 1 puff Inhalation Q6H PRN RF: 0 fluoxetine 20 mg capsule 20 mg PO DAILY RF: 0 potassium chloride 20 mEq tablet extended release 20 meq PO BID RF: 0 furosemide 20 mg tablet 20 mg PO BID RF: 0 amlodipine 10 mg tablet 10 mg PO DAILY RF: 0 nitroglycerin [Nitrostat] 0.4 mg Tablet, Sublingual 0.4 mg sublingual Q5 MIN PRN X3 PRN (Reason: chest pain) Qty: 20 RF: 0 aspirin 81 mg tablet,chewable 81 mg PO DAILY Qty: 30 RF: 0 acetaminophen [Tylenol Extra Strength] 500 mg Tablet 500 mg PO PRN PRNRF: 0 Discharge Instructions Instructions: Acute Nausea and Vomiting (ED) Additional Instructions: Follow up with primary care provider in 3-5 days. Return to ED sooner if any worsening or concerns. Increase oral fluids. Return to the ED for any increasing chest pain abdominal pain nausea vomiting or any concerns. I spoke with Dr. Birch and Dr. Miller with [facility] and they are going to follow-up with you. Dr. Birch said that he would follow-up with vascular surgery and you personally. Referrals: Theo Birch [ [facility] STAFF PHYSICIAN] - Thania Carroll [Primary Care Provider] - Medical Decision Making 64-year-old female presents to the ER chief complaint of nausea. Patient states that she ate lunch it early for check around 1230. Symptoms of nausea and tingling in her bilateral arms began around 4:00 this afternoon. She does have a history of a or aortic dissection repair in March 2019. She denies any specific chest pain or shortness of breath. She does report some mid abdominal pain. No emesis or diarrhea. Denies any fever or chills. 1926: Spoke with [facility] radiologist regarding CTA. Consult with [facility] vascular surgery to compare and contrast CTs to rule out evolving abdominal aorta or dissection call placed to transfer center and images pushed for CT. CBC is largely within normal limits, sodium is 140, potassium 3.6, anion gap is 12.4, glucose is 123, BUN 18 creatinine 1.01, GFR is 55.54 initial troponin was within normal limits less than 0.05 IMPRESSION: 1. The patient's known Timmy type A aortic dissection is identified with evidence of prior surgical repair and prosthetic aortic valve placement. The residual intimal dissection flap extends from the distal edge of the repair in the proximal aortic arch and continues throughout the thoracic and abdominal aorta, extending into the right common iliac artery and proximal most left common iliac artery as detailed above. 2. There is extension into the brachiocephalic artery and visualized proximal right CCA as well as the proximal most left CCA and proximal left subclavian artery. No evidence of associated occlusion. Direct comparison to previous chest CT angiograms or neck CT angiogram could be helpful to determine the chronicity of this extension. If there is clinical concern for acute extension to involve the great vessels, CT angiography of the head and neck may be helpful for further characterization. 3. No arterial occlusions. 4. These findings initiated a results reporting process. An addendum will be issued at the time of clinician notification. IMPRESSION: 1. Aortic dissection with unchanged distribution of involvement in the celiac artery/hepatic artery, proximal SMA, right common iliac, and proximal most left common iliac distributions as detailed above. No evidence of arterial thrombosis/occlusion or change. 2. No CT evidence of bowel ischemia. 3. Right adrenal adenoma again noted. No further imaging evaluation is required. 4. Mild diverticulosis involving the distal colon without evidence of acute diverticulitis. 2017: Patient reevaluation, she is sitting up in bed vital signs are stable. She reports nausea is better. She denies any continued tingling in the arms or any pain. Discussed plan of care and consult with [facility] vascular surgery, verbalized understanding. Repeat troponin is pending at this time. 2134: Call re-made to [facility] transfer center by community engagement leader to inquire on status of consult they report they are working on it. Reevaluation of patient, she continues to feel better nausea has not returned, she is sitting on side of the bed on school lunch monitor. She is requesting eris cassandra patient was given classic eris cassandra for p.o. trial. At this time I do still anticipate discharge home and expressed this to patient, verbalized understanding. 2154: Spoke with [facility] Dr. Miller with Vascular surgery regarding CT. He states it was cardio-thoracic surgery and not vascular who did the repair. Transfer center to put out page to Cardio to evaluate and compare the new CT. 2231: Spoke with Dr. Birch he reports that what the radiologist reports is everything to be expected s/p repair. He states he will personally take a look at image and call me back. In the meantime, patient has remained hemodynamically stable through out stay and has no evidence for any deterioration or worsening of condition. 2299: Spoke again with Cardiothoracic surgeon Dr. Birch after he personally viewed images. He reports expected findings after a repair. He will coordinate with vascular surgery and contact patient for close follow-up. Discussed this with patient, verbalized understanding. Patient to call daughter's unsuccessful, left a voicemail. Patient is to be discharged home. Zofran tablets to go given. And prescription for Zofran as needed for nausea. HPI General Mode of arrival: ambulatory. Date/Time Provider Initiated Documentation: 10/18/19 17:07. Limitations to Documentation: no limitations. Information obtained by: patient. HPI Narrative: 64-year-old female presents to the ER chief complaint of nausea. Patient states that she ate lunch at [employer] around 1230. Symptoms of nausea and tingling in her bilateral arms began around 4:00 this afternoon. She does have a history of a aortic dissection repair in March 2019. She denies any specific chest pain or shortness of breath. She does report some mid abdominal pain. No emesis or diarrhea. Denies any fever or chills. Related Data Home Medications Medication Instructions Recorded Confirmed albuterol sulfate [Ventolin HFA] 1 puff INHALATION Q6H PRN inhaler 04/03/15 10/18/19 NS buspirone 10 mg PO BID NS 04/03/15 10/18/19 ergocalciferol (vitamin D2) 1 tab-cap PO DAILY tab-cap NS 04/03/15 10/18/19 [Vitamin D2] fluoxetine [Prozac] 40 mg PO DAILY tab-cap NS 04/03/15 10/18/19 acetaminophen [Tylenol Extra 500 mg PO PRN PRN 10/17/18 10/18/19 Strength] aspirin 81 mg PO DAILY #30 tab 11/30/18 10/18/19 nitroglycerin [Nitrostat] 0.4 mg SUBLINGUAL Q5 MIN PRN X3 11/30/18 10/18/19 PRN #20 tab amlodipine 10 mg tablet 10 mg PO DAILY 09/05/19 10/18/19 fluoxetine 20 mg capsule 20 mg PO DAILY 09/05/19 10/18/19 furosemide 20 mg tablet 20 mg PO BID 09/05/19 10/18/19 potassium chloride 20 mEq 20 meq PO BID 09/05/19 10/18/19 tablet,extended release metoprolol tartrate 25 mg tablet 25 mg PO BID 09/10/19 10/18/19 ondansetron HCl [Zofran] 4 mg PO TID PRN 5 Days #7 tab 10/18/19 Previous Rx's Medication Instructions Recorded aspirin 81 mg PO DAILY #30 tab 11/30/18 nitroglycerin [Nitrostat] 0.4 mg SUBLINGUAL Q5 MIN PRN X3 11/30/18 PRN #20 tab ondansetron HCl [Zofran] 4 mg PO TID PRN 5 Days #7 tab 10/18/19 Allergies Allergy/AdvReac Type Severity Reaction Status Date / Time amlodipine Allergy Unverified 11/29/18 15:44 atenolol Allergy Unverified 11/29/18 15:44 bupropion HCl Allergy Unverified 11/29/18 15:44 [From Wellbutrin] fosinopril sodium Allergy Unverified 11/29/18 15:44 [From Monopril] morphine Allergy Unverified 11/29/18 15:44 quinidine Allergy Unverified 11/29/18 15:44 venlafaxine HCl Allergy Unverified 11/29/18 15:44 [From Effexor] ciprofloxacin [From Cipro] AdvReac Severe Unverified 11/29/18 15:44 General Stated Complaint: Nausea/Vomit/Diar KATHRYN: 3 Review of Systems Narrative: Constitutional: Negative for weight loss, alert and oriented, well groomed, normal body habitus, appears comfortable. HEENT: Denies trauma, headaches, blurry vision, nasal discharge, sore throat, trouble swallowing. Chest: Denies chest pain, palpitations, irregular rhythm, hypertension. Respiratory: Denies Shortness of breath, cough, hemoptysis. GI: Positive nausea. Positive abdominal pain which is generalized nonspecific. Denies any diarrhea or constipation no vomiting at this time. : Denies dysuria, hematuria, flank pain, rectal bleeding. Neuro: Denies dizziness, blurry vision, weakness, syncope, headache or facial numbness. Hematologic: Denies easy bruising, intolerance to heat or cold, hair loss. [facility] Medical History ADHD (Acute) Adrenal adenoma (Acute) Adrenal nodule (Acute) Alopecia (Acute) Anxiety (Chronic) Asthma (Chronic) Bilateral renal cysts (Acute) Borderline glaucoma (Acute) Calculus of kidney (Chronic) Calculus of ureter (Acute) Carpal tunnel syndrome (Acute) Essential hypertension (Chronic) GERD (gastroesophageal reflux disease) (Chronic) Hypothyroidism (acquired) (Chronic) Mitral valve prolapse (Chronic) Obstructive sleep apnea (Chronic) Primary hyperparathyroidism (Chronic) Proximal aortic dissection (Acute) PTSD (post-traumatic stress disorder) (Acute) Recurrent UTI (Acute) Renal cyst (Acute) Stress (Acute) Tremor (Acute) Trigger finger of left thumb (Acute) Umbilical hernia (Acute) Surgical History H/O parathyroidectomy (Acute) History of cholecystectomy (Chronic) History of cranioplasty (Acute) History of incisional hernia repair (Acute) S/P BSO (bilateral salpingo-oophorectomy) (Acute) Benign indications. Uterus remains. Family History Father Heart disease Mother Hypertension Sister Obstructive sleep apnea Mitral valve prolapse Paternal Uncle Heart disease Social History Smoking/Tobacco Use Status: Former Tobacco Use Pack-years: 4 Alcohol Intake: current Alcohol Intake frequency: holidays/special occasions only Details: began smoking age 15 and quit at age 19 Drug use: Never Substance use type: does not use Household members: spouse Number of Children: 2 current occupation: [employer] Sexually active: No Current gender identity: decline to answer Do you feel safe at home: Yes Do you feel safe in your relationship?: Yes Female Reproductive History Menstrual Menopause type: natural (@ 52yo) History History 2 Para 2 Hx # Term Pregnancies 2 Multiple births Hx # Pregnancies Ectopic pregnancies AB induced Hx Number of Living Children 2 AB spontaneous Exam Narrative Exam Narrative: Constitutional: Alert and oriented x3. Appears stated age. Normal body habitus. Head: Normocephalic, no trauma. Eyes: Pupils PERRLA, Red reflex noted, EOM's intact. Eyelids symmetrical without lesions, discharge, or swelling. ENT: Bilateral TM's WNL, External ear normal to inspection, no mastoid TTP, swelling, or erythema, Nasal turbinates WNL, no nasal discharge. Normal dentition, Posterior pharynx WNL, no exudate. Chest: RRR, Normal S1, S2, distal pulses intact. Does have a midline vertical surgical scar which is healed. Resp: Lungs clear to auscultation bilaterally, no wheezes, rales, or rhonchi. Musculoskeletal: Normal gait, 5/5 strength to all four extremities. Does have a stirrup air splint noted to right ankle which she reports is for tendinitis. Skin: No suspicious rashes or lesions. Capillary refill less than 2 sec. Neurologic: Cranial nerves II-XII intact. Alert and oriented x 3. DTR's intact. Hematologic/Lymphatic: No ecchymosis, no lymphadenopathy. Course Vital Signs Vital signs: Vital Signs Temperature 36.7 C 10/18/19 16:51 Pulse 79 10/18/19 16:51 Respiratory Rate 18 10/18/19 16:51 Blood Pressure 153/71 H 10/18/19 16:51 Pulse Oximetry 96 10/18/19 16:51 Temperature 36.7 C 10/18/19 16:51 Temperature Source Oral 10/18/19 16:51 Pulse 79 10/18/19 16:51 Respiratory Rate 18 10/18/19 16:51 Respiratory Effort Non-Labored 10/18/19 16:56 Blood Pressure 153/71 H 10/18/19 16:51 Blood Pressure Position Sitting 10/18/19 16:51 Pulse Oximetry 96 10/18/19 16:51 Oxygen Delivery Method Room Air 10/18/19 16:51 Oxygen Flow Rate 0 10/18/19 16:51
--- NOTE | 2019-10-18 17:15 | DI.CT_ITS ---
EXAM: CT THORAX ABD/PEL CTA CLINICAL HISTORY: h/o Aortic dissection repair/nausea. TECHNIQUE: Imaging Protocol: Axial CT angiography was performed with multi-slice acquisition and m ulti-planar and/or 3D reconstructions. CONTRAST MATERIAL: Intravenous: Omnipaque 350 Contrast volume:68 mL Oral: No COMPARISON: CT CT THORAX CTA from 11/29/[address] ABDOMEN PELVIS WO/W from 09/16/[address] ABDOMEN PELVIS WO/W from 09/16/2019 FINDINGS: CHEST: Pulmonary Arteries: Protocol not optimal for evaluation of pulmonary emboli. Tracheobronchial tree: Patent where visualized. Mediastinum and Kathy: No dominant adenopathy or fluid collection. Pulmonary parenchyma: No consolidation or dominant measurable mass. No architectural distortion. Pleura: No effusion or pneumothorax. Heart: The heart is not dilated. Mild coronary artery calcification. No pericardial effusion. Aorta: There is evidence of an aortic dissection beginning in the proximal thoracic aortic arch near the level of the origin of the brachiocephalic artery. It extends through the distal aortic arch int o the descending thoracic aorta. Proximally the dissection extends into the brachiocephalic artery a nd the visualized proximal portions of the right and left common carotid arteries. There is a short extension into the proximal left subclavian artery. There is no evidence of occlusion and all of the great vessels demonstrate contrast enhancement. There are no prior studies for comparison of the th oracic component of the aortic dissection. The dissection extends into the abdominal aorta into the right common iliac artery to the level of the bifurcation. There is also an extension a short distan ce into the proximal left common iliac artery. The abdominal and pelvic extension of the aortic diss ection appears stable compared to the examination from 09/16/2019. Bones: Degenerative changes in the spine. Status post sternotomy. ABDOMEN AND PELVIS: Abdomen: Celiac axis/mesenteric arteries: No evidence of occlusion or significant stenosis. Renal Arteries: No evidence of occlusion or significant stenosis. There is a single renal artery per fusing each kidney. Aorta: No evidence of occlusion or significant stenosis. No aneurysm or dissection. Pelvis: Iliac Arteries: No evidence of occlusion or significant stenosis. Common Femoral Arteries: No evidence of occlusion or significant stenosis. ABDOMEN: Liver: Normal density. No measurable mass. Portal, Superior Mesenteric, and Splenic Veins: Unremarkable. Gallbladder and Biliary Tract: Status post cholecystectomy. Pancreas: Normal density, no abnormal calcifications or inflammatory process. Spleen: Normal. Adrenals: Stable right adrenal nodule. Unremarkable left adrenal gland. Kidneys: Normal size, contour and axis. No radiodense stones or obstructive uropathy. Stable bilatera l renal cysts. Bowel: No obstruction or bowel wall thickening. No evidence of acute appendicitis. Colonic diverticu losis. Peritoneal Cavity: No ascites, collection or mesenteric inflammatory response. Lymph Nodes: Within normal limits. Bones: No acute abnormality. Soft Tissues: Stable umbilical hernia. Stable round fluid collection in the right inguinal region. PELVIS: Bladder: Symmetric distention, no gross wall thickening. Reproductive Organs: Unremarkable as visualized. Lymph Nodes: Within normal limits. Bones: Within normal limits. IMPRESSION: 1. Aurora type a thoracic aortic dissection with evidence of prior surgical repair and prostatic ao rtic valve placement. There is some with prior neck and chest CT angiograms could be helpful to asse ss for stability. No evidence of arterial occlusion. 2. Abdominal pelvic aortic dissection which is unchanged compared to the examination from 09/16/2019. No evidence of arterial occlusion. 3. No acute abdominal or pelvic process. RADIATION DOSE DELIVERED: 1,117.83mGy.cm Total DLP DATA REPOSITORY: All CT scans at this facility are submitted to the National Radiology Data Registry (NRDR) Dose Index Registry (DIR) with the [employer] (ACR). RADIATION OPTIMIZATION: All CT scans at this facility use at least one of these dose optimization te chniques: automated exposure control; mA and/or kV adjustment per patient size (includes targeted exa ms where dose is matched to clinical indication); or iterative reconstruction.
[2019-10-18 17:17] LABS: Abs Immature Grans 0.02 10^3/uL (0.0-0.06); Absolute Basophil Count 0.04 10^3/uL (0.0-0.2); Absolute Eosinophil Count 0.08 10^3/uL (0.0-0.7); Absolute Lymphocyte Count 2.47 10^3/uL (1.2-3.4); Absolute Monocyte Count 0.85 10^3/uL (0.1-0.8); Basophils % 0.5; HGB 13.6 g/dL (11.2-15.7); Immature Grans % 0.3; Lymphocytes % 31.4; MCH 28.6 pg (27.0-33.0); MCHC 32.4 % (32.0-36.0); MCV 88.4 fL (80-95); MPV 9.8 fL (8.0-11.0); Monocytes % 10.8; Nucleated RBC 0 %; Platelet Count 312 10^3/uL (130-400); RBC 4.75 10^6/uL (3.93-5.22); RDW-SD 45.1 fL; WBC 7.86 10^3/uL (4.4-10.8)
[2019-10-18 17:33] LABS: ALT 20 U/L (14-59); AST 12 U/L (15-37); Albumin 3.9 g/dL (3.4-5.0); Alkaline Phosphatase 127 U/L (46-116); Anion Gap 12.4 mmol/L (3-11); BUN 18 mg/dL (7-18); Bilirubin, Total 0.2 mg/dL (0.2-1.0); CO2 24.6 mmol/L (21.0-32.0); CREATININE 1.01 mg/dL (0.55-1.02); Calcium 9.2 mg/dL (8.5-10.1); Chloride 103 mmol/L (98-107); Estimated GFR 55.54 (mL/min/1.73m2); Glucose 123 mg/dL (74-106); Magnesium 1.9 mg/dL (1.8-2.4); Potassium 3.6 mmol/L (3.5-5.1); Sodium 140 mmol/L (136-145); Total Protein 7.9 g/dL (6.4-8.2); Troponin I < 0.05 ng/mL (<0.06)
[2019-10-18] MEDS: Normal Saline 1,000 ML 1000 ML IV (17:41)
[2019-10-18] MEDS: Ondansetron 4 MG/2 ML VIAL IVP (17:42)
[2019-10-18] MEDS: Omnipaque 350 MG/ML 100 ML BTL IJ (18:05)
[2019-10-18] MEDS: Normal Saline - Diluent 50 ML VIAL IV (18:06)
[2019-10-18] MEDS: Normal Saline Flush 10 ML SYR IVP (18:07)
--- NOTE | 2019-10-18 19:08 | NUR.NOTE ---
Nursing Note: PT care transferred to raul GARCIA at this time. PT alert and oriented, vitals stable.
--- NOTE | 2019-10-18 19:20 | NUR.NOTE ---
Nursing Note: Patient resting comfortably on stretcher. Reconnected to IV fluids. Reports feeling better but still yucky.
--- NOTE | 2019-10-18 19:26 | DI.VRAD_ITS ---
Addendum created by Johnnie Reeves MD on 10/18/2019 7:26:17 PM EDT: Addendum: THIS REPORT CONTAINS FINDINGS THAT MAY BE CRITICAL TO PATIENT CARE. The findings were verbally communicated via telephone conference with JOE HEATH at 7:26 PM EDT on 10/18/2019. The findings were acknowledged and understood. Initial report created on 10/18/2019 7:11:35 PM EDT: PROCEDURE INFORMATION: Exam: CT Angiography Chest With Contrast Exam date and time: 10/18/2019 5:18 PM Age: 64 years old Clinical indication: Other: H/o aortic dissection repair/ nausea TECHNIQUE: Imaging protocol: Computed tomographic angiography of the chest with intravenous contrast. 3D rendering (Not supervised by radiologist): MIP and/or 3D reconstructed images were created by the technologist. Contrast material: OMNIPAQUE 350; Contrast volume: 68 ml; Contrast route: INTRAVENOUS (IV); COMPARISON: CT [facility] CTA 11/29/2018 9:53 PM FINDINGS: Pulmonary arteries: The pulmonary arteries enhance appropriately with no evidence of pulmonary embolism. Aorta: Prior median sternotomy and prosthetic aortic valve noted with postoperative changes around the ascending aorta consistent with the patient's history of prior aortic dissection repair. There is evidence of aortic dissection beginning just beyond the repair in the proximal aortic arch near the level of the origin of the brachiocephalic artery, which extends through the distal aortic arch and descending thoracic aorta to involve the abdominal aorta, also extending into the right common iliac artery to the level of the bifurcation and extending is short distance into the proximal left common iliac artery. This is new since the most recent comparison chest CT angiogram on 11/29/2018, however the abdominal involvement appears unchanged from the more recent CT of the abdomen and pelvis 09/16/2019. The dissection extends into the great vessels with involvement of the brachiocephalic artery and visualized portions of the proximal right CCA, and slight extension into the proximal most left CCA, with bovine arch configuration. Additional short segment extension into the proximal left subclavian artery. All of the great vessels demonstrate contrast enhancement without evidence of occlusion. Comparison to any more recent chest or neck CT angiograms could be helpful to assess stability of the great vessel involvement if any can be made available. There are none available on the patient's exam list for this facility. Thyroid: The visualized thyroid gland demonstrates no gross abnormality. Lungs: No acute tracheobronchial abnormalities. No pulmonary infiltrates or edema. No pulmonary nodules or mass lesions are identified. Pleural space: No pleural effusion. No pneumothorax. Heart: Heart size normal. No pericardial effusion. Mediastinal space: The esophagus is largely contracted but demonstrates no gross abnormality. Lymph nodes: No supraclavicular or axillary adenopathy. No mediastinal or hilar adenopathy. Bones/joints: No acute osseous abnormalities are identified. Soft tissues: The soft tissues of the chest wall demonstrate no acute abnormality. IMPRESSION: 1. 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 The residual intimal dissection flap extends from the distal edge of the repair in the proximal aortic arch and continues throughout the thoracic and abdominal aorta, extending into the right common iliac artery and proximal most left common iliac artery as detailed above. 2. There is extension into the brachiocephalic artery and visualized proximal right CCA as well as the proximal most left CCA and proximal left subclavian artery. No evidence of associated occlusion. Direct comparison to previous chest CT angiograms or neck CT angiogram could be helpful to determine the chronicity of this extension. If there is clinical concern for acute extension to involve the great vessels, CT angiography of the head and neck may be helpful for further characterization. 3. No arterial occlusions. 4. These findings initiated a results reporting process. An addendum will be issued at the time of clinician notification. PROCEDURE INFORMATION: Exam: CT Angiography Abdomen and Pelvis With Contrast Exam date and time: 10/18/2019 5:18 PM Age: 64 years old Clinical indication: Other: H/o aortic dissection repair/ nausea TECHNIQUE: Imaging protocol: Computed tomographic angiography of the abdomen and pelvis with intravenous contrast material. 3D rendering (Not supervised by radiologist): MIP and/or 3D reconstructed images were created by the technologist. Contrast material: OMNIPAQUE 350; Contrast volume: 68 ml; Contrast route: INTRAVENOUS (IV); COMPARISON: CT [facility] CTA 11/29/2018 9:53 PM FINDINGS: Aorta: The aortic dissection flap is again noted and unchanged from 09/16/2019. No evidence of aortic aneurysm or rupture. Celiac trunk and mesenteric arteries: The intimal dissection extends into the celiac artery, common hepatic artery, and proper hepatic artery to the level of the keenan hepatis, unchanged. No occlusion/thrombosis. The intimal dissection extends into the proximal SMA, unchanged. No occlusion/thrombosis. The BRENDAN is patent. Renal arteries: Single right main renal artery which is patent. Single left main renal artery which is patent. Right iliac arteries: Right common iliac artery extension of the dissection flap is seen to the level of the bifurcation into external and internal iliac arteries. No evidence of occlusion/thrombosis. Left iliac arteries: Left common iliac artery extension of the dissection flap is seen in the proximal most 1 cm without occlusion or thrombosis. Moderate calcific plaque in the left internal iliac artery without stenosis. Liver: Normal size and contour. No mass lesions. No intrahepatic biliary ductal dilatation. Gallbladder and bile ducts: Evidence of prior cholecystectomy with no significant dilatation of the common bile duct. Pancreas: Normal. No inflammatory changes or ductal dilation. Spleen: Normal. No splenomegaly. Adrenals: 3.1 x 2.0 cm right adrenal adenoma unchanged. No further imaging evaluation is required. Left adrenal gland is normal. Kidneys and ureters: No acute abnormalities. No hydronephrosis or hydroureter. No urinary tract stones are identified. Bilateral simple renal cysts noted. No further imaging evaluation is required. Stomach and bowel: The stomach is grossly normal. The small bowel is normal with no evidence of obstruction. No CT evidence of bowel ischemia. No acute colonic abnormalities. Mild diverticulosis involving the distal colon without evidence of acute diverticulitis. Appendix: The appendix is normal in caliber and demonstrates no evidence of appendicitis. Intraperitoneal space: No free fluid or air. Lymph nodes: No adenopathy. Bladder: Unremarkable as visualized. Reproductive: Unremarkable as visualized. Bones/joints: No acute osseous abnormalities. Soft tissues: 4.6 cm thin-walled cystic structure in the right inguinal region is unchanged with no adjacent inflammatory stranding, probably seroma or chronic hematoma. Fatty umbilical hernia noted with partial protrusion of a few small bowel loops into the hernia but no evidence of bowel obstruction or strangulation. Other findings: The visualized distal esophagus is normal. IMPRESSION: 1. Aortic dissection with unchanged distribution of involvement in the celiac artery/hepatic artery, proximal SMA, right common iliac, and proximal most left common iliac distributions as detailed above. No evidence of arterial thrombosis/occlusion or change. 2. No CT evidence of bowel ischemia. 3. Right adrenal adenoma again noted. No further imaging evaluation is required. 4. Mild diverticulosis involving the distal colon without evidence of acute diverticulitis. Dictated and Authenticated by: Johnnie Reeves MD. Ordering:CHEKO Victor MD
[2019-10-18 20:51] LABS: Troponin I < 0.05 ng/mL (<0.06)
[2019-10-18] MEDS: Ondansetron O.D.T. 4 MG TABEF, 3 TABS/BTL PO (23:20)
== END 2019-10-18 23:20 | disposition home or self-care (01) ==
PROVIDERS: Emergency Provider Registered Nurse Emergency; PCP Nurse Practitioner Family
DX: R11.0 Nausea (principal); K57.30 Diverticulosis of large intestine without perforation or abscess without bleeding; I10 Essential (primary) hypertension
CPT/HCPCS: 36415; 74177; 80053; 93005; 96361; 96374; 99285; 83735; 84484; 85025; 93010; 99284; J2405; J3490

== ENCOUNTER 2019-10-22 00:55 | Outpatient (CLI) | payer BC, SELFPAY ==
--- NOTE | 2019-10-22 06:45 | DI.US_ITS ---
EXAM: US PELVIS TRANSVAGINAL CLINICAL HISTORY: unsure if having Postmenopausal bleeding, N93.9. TECHNIQUE: Transabdominal and transvaginal pelvic ultrasound was performed using standard protocol. COMPARISON: No exams were available for comparison FINDINGS: KIDNEYS: Kidneys are symmetric in size. No evidence of renal calculi. No evidence of hydronephrosis. No renal mass or cyst identified. UTERUS: Position: Anteverted. Size: 6.8 long by 2.4 AP by 4.1 transverse cm Endometrium: 0.4 cm. Normal for patient's menstrual status. Myometrium: Unremarkable. Cervix: Unremarkable. OVARIES: Status post bilateral oophorectomy. CUL-DE-SAC: Free fluid: None. Other: None. IMPRESSION: 1. Normal sonographic appearance of the kidneys. 2. Endometrial stripe within normal limits for the patient's age. 3. Status post bilateral oophorectomy. DATA REPOSITORY:
== END 2019-10-22 01:15 ==
PROVIDERS: PCP Nurse Practitioner Family; Visit Provider Obstetrics & Gynecology Gynecology
DX: N93.9 Abnormal uterine and vaginal bleeding, unspecified (principal)
CPT/HCPCS: 76830; 76856

== ENCOUNTER 2019-12-18 18:42 | Outpatient (REF) | payer BC, SELFPAY ==
[2019-12-18 20:00] LABS: TSH (W/Ref FT4) 1.27 uIU/mL (0.36-3.74)
[2019-12-18 20:21] LABS: Hemoglobin A1C 5.8 % (<5.7)
[2019-12-19 04:30] LABS: Vitamin D 25 Total 47.1 ng/ml (30-100)
== END 2019-12-18 19:02 ==
LOC: NCHCN 18:42
PROVIDERS: PCP Nurse Practitioner Family; Visit Provider Nurse Practitioner Psychiatric/Mental Health
DX: N39.0 Urinary tract infection, site not specified (principal); R73.03 Prediabetes
CPT/HCPCS: 82306; 83036; 84443

== ENCOUNTER 2020-08-18 07:16 | Outpatient (RCR) | payer BC, SELFPAY ==
--- NOTE | 2020-08-18 17:15 | HOLTER_ITS ---
APPROVED REPORT Conclusion There is a 48-hour monitor ordered for indication of irregular rhythm. The patient was in normal sinus rhythm for the majority of the recording with an average heart rate o f 71 bpm. There were no episodes of ventricular tachycardia but frequent (9%) PVCs with bigeminy and trigeminy. There were no episodes of supraventricular tachycardia and rare PACs. There were no episodes of atrial fibrillation, no pauses greater than 3 seconds and no evidence of hi gh degree heart block. There were 2 patient triggered events recorded as felt sick for 1 hour and irregular heartbeat. Both of these events were associated with sinus rhythm and sinus tachycardia
== END 2020-08-19 23:59 | disposition home or self-care (01) ==
LOC: RT 07:16
PROVIDERS: PCP Nurse Practitioner Family; Visit Provider Nurse Practitioner Family
DX: I49.8 Other specified cardiac arrhythmias (principal); I49.3 Ventricular premature depolarization; R00.8 Other abnormalities of heart beat
CPT/HCPCS: 93225; 93226

== ENCOUNTER 2020-08-21 01:47 | Outpatient (CLI) | payer BC, SELFPAY ==
[2020-08-21 16:38] LABS: HCT 40.2 % (36.0-46.0); HGB 13.1 g/dL (11.2-15.7); MCH 29.2 pg (27.0-33.0); MCHC 32.6 % (32.0-36.0); MCV 89.5 fL (80-95); Platelet Count 284 10^3/uL (130-400); RBC 4.49 10^6/uL (3.93-5.22); RDW 12.9 % (11.7-14.6); RDW-SD 42.5 fL; WBC 7.61 10^3/uL (4.4-10.8)
[2020-08-21 17:14] LABS: Anion Gap 9.7 mmol/L (3-11); BUN 13 mg/dL (7-18); CO2 27.3 mmol/L (21.0-32.0); CREATININE 0.9 mg/dL (0.55-1.02); Calcium 9.3 mg/dL (8.5-10.1); Chloride 104 mmol/L (98-107); Glucose 87 mg/dL (74-106); Potassium 3.8 mmol/L (3.5-5.1); Sodium 141 mmol/L (136-145)
== END 2020-08-21 01:48 | disposition home or self-care (01) ==
LOC: LBO 01:48
PROVIDERS: PCP Nurse Practitioner Family; Visit Provider Nurse Practitioner Family
DX: I50.9 Heart failure, unspecified (principal); I49.9 Cardiac arrhythmia, unspecified; R53.83 Other fatigue
CPT/HCPCS: 36415; 80048; 85027

== ENCOUNTER 2021-05-28 16:12 | Outpatient (REF) | payer BC, SELFPAY ==
[2021-05-28 16:04] LABS: BUN 14 mg/dL (7-18); CREATININE 0.9 mg/dL (0.55-1.02); Chloride 104 mmol/L (98-107); Glucose 85 mg/dL (74-106); Sodium 140 mmol/L (136-145)
== END 2021-05-28 16:13 | disposition home or self-care (01) ==
LOC: NCHCN 16:12
PROVIDERS: PCP Nurse Practitioner Family; Visit Provider Nurse Practitioner Family
DX: I10 Essential (primary) hypertension (principal); I50.9 Heart failure, unspecified
CPT/HCPCS: 80048

== ENCOUNTER 2022-02-08 17:58 | Outpatient (REF) | payer OTHER, SELFPAY ==
[2022-02-08 18:40] LABS: HCT 40.6 % (36.0-46.0); HGB 13.3 g/dL (11.2-15.7); MCH 28.9 pg (27.0-33.0); MCHC 32.8 % (32.0-36.0); MCV 88 fL (80-95); MPV 9.7 fL (8.0-11.0); Platelet Count 312 10^3/uL (130-400); RDW 13.2 % (11.7-14.6); RDW-SD 42.6 fL; WBC 8.37 10^3/uL (4.4-10.8)
[2022-02-08 19:00] LABS: ALT 23 U/L (14-59); AST 16 U/L (15-37); Albumin 3.9 g/dL (3.4-5.0); Alkaline Phosphatase 105 U/L (46-116); Anion Gap 6.8 mmol/L (3-11); BUN 20 mg/dL (7-18); Bilirubin, Total 0.3 mg/dL (0.2-1.0); CO2 28.2 mmol/L (21.0-32.0); CREATININE 0.8 mg/dL (0.55-1.02); Calcium 9.2 mg/dL (8.5-10.1); Calculated LDL 135 mg/dL (<100); Chloride 104 mmol/L (98-107); Cholesterol 228 mg/dL (<200); Estimated GFR 82.23 (mL/min/1.73m2); Glucose 92 mg/dL (74-106); HDL Cholesterol 54 mg/dL (40-60); Potassium 4.1 mmol/L (3.5-5.1); Sodium 139 mmol/L (136-145); Total Protein 7.6 g/dL (6.4-8.2); Triglyceride 195 mg/dL (<150)
== END 2022-02-08 17:59 | disposition home or self-care (01) ==
LOC: NCHCN 17:58
PROVIDERS: PCP Nurse Practitioner Family; Visit Provider Nurse Practitioner Family
DX: E78.2 Mixed hyperlipidemia (principal); F43.10 Post-traumatic stress disorder, unspecified; K21.9 Gastro-esophageal reflux disease without esophagitis; I49.9 Cardiac arrhythmia, unspecified; Z00.00 Encounter for general adult medical examination without abnormal findings
CPT/HCPCS: 80053; 80061; 85027

== ENCOUNTER 2022-11-08 16:28 | Outpatient (REF) | payer OTHER, SELFPAY ==
[2022-11-08 19:51] LABS: ALT 25 U/L (14-59); AST 22 U/L (15-37); Albumin 3.7 g/dL (3.4-5.0); Alkaline Phosphatase 97 U/L (46-116); Anion Gap 11.6 mmol/L (3-11); BUN 18 mg/dL (7-18); Bilirubin, Total 0.4 mg/dL (0.2-1.0); CO2 24.4 mmol/L (21.0-32.0); Calcium 9.3 mg/dL (8.5-10.1); Chloride 104 mmol/L (98-107); Estimated GFR 62.52 (mL/min/1.73m2); FREE T4 0.96 ng/dL (0.76-1.46); Glucose 119 mg/dL (74-106); Magnesium 1.8 mg/dL (1.8-2.4); Potassium 3.9 mmol/L (3.5-5.1); Sodium 140 mmol/L (136-145); TSH 1.72 uIU/mL (0.36-3.74); Total Protein 7.6 g/dL (6.4-8.2)
[2022-11-08 21:21] LABS: Vitamin D 25 Total 51.7 ng/mL (30-100)
[2022-11-08 22:55] LABS: Hemoglobin A1C 5.8 % (<5.7)
[2022-11-09 19:15] LABS: Parathyroid Hormone,Intact 86 pg/mL (19-88)
== END 2022-11-08 16:29 | disposition home or self-care (01) ==
LOC: NCHCN 16:28
PROVIDERS: PCP Nurse Practitioner Family; Visit Provider Nurse Practitioner Family
DX: E21.3 Hyperparathyroidism, unspecified (principal); R53.83 Other fatigue; Z83.3 Family history of diabetes mellitus; I50.9 Heart failure, unspecified
CPT/HCPCS: 80053; 82306; 83036; 83735; 83970; 84439; 84443

== ENCOUNTER 2023-05-19 15:15 | Outpatient (REF) | payer OTHER, SELFPAY ==
[2023-05-19 19:23] LABS: Calcium 9.2 mg/dL (8.5-10.1); TSH 1.78 uIU/Ml (0.36-3.74)
[2023-05-19 19:58] LABS: Vitamin D 25 Total 37.7 ng/mL (30-100)
[2023-05-22 10:03] LABS: Parathyroid Hormone,Intact 99 pg/mL (19-88)
== END 2023-05-19 15:16 | disposition home or self-care (01) ==
LOC: NCHCN 15:15
PROVIDERS: PCP Nurse Practitioner Family; Visit Provider Nurse Practitioner Family
DX: E55.9 Vitamin D deficiency, unspecified (principal); E21.3 Hyperparathyroidism, unspecified; E04.1 Nontoxic single thyroid nodule
CPT/HCPCS: 82306; 82310; 83970; 84439; 84443

== ENCOUNTER 2024-06-20 14:18 | Outpatient (REF) | payer OTHER, SELFPAY ==
[2024-06-20 19:18] LABS: Abs Immature Grans 0.03 10^3/uL (0.0-0.06); Absolute Basophil Count 0.05 10^3/uL (0.0-0.2); Absolute Eosinophil Count 0.09 10^3/uL (0.0-0.7); Absolute Lymphocyte Count 2.23 10^3/uL (1.2-3.4); Absolute Monocyte Count 0.73 10^3/uL (0.1-0.8); Basophils % 0.7 %; Eosinophils % 1.3 %; HCT 41.5 % (36.0-46.0); Immature Grans % 0.4 %; Lymphocytes % 31.3 %; MCH 29.9 pg (27.0-33.0); MCHC 33.7 % (32.0-36.0); MCV 89 fL (80-95); MPV 10.3 fL (8.0-11.0); Monocytes % 10.2 %; Neutrophils % 56.1 %; Platelet Count 310 10^3/uL (130-400); RBC 4.69 10^6/uL (3.93-5.22); RDW 13.2 % (11.7-14.6); RDW-SD 42.5 fL; WBC 7.13 10^3/uL (4.4-10.8)
[2024-06-20 19:35] LABS: Hemoglobin A1C 5.9 % (<5.7)
[2024-06-20 19:39] LABS: ALT 23 U/L (14-59); AST 17 U/L (15-37); Albumin 4.1 g/dL (3.4-5.0); Alkaline Phosphatase 95 U/L (46-116); Anion Gap 9.4 mmol/L (3-11); BUN 19 mg/dL (7-18); Bilirubin, Total 0.5 mg/dL (0.2-1.0); CO2 27.6 mmol/L (21.0-32.0); CREATININE 0.9 mg/dL (0.55-1.02); Calcium 9.3 mg/dL (8.5-10.1); Calculated LDL 161 mg/dL (<100); Chloride 108 mmol/L (98-107); Cholesterol 253 mg/dL (<200); Estimated GFR 70.51 (mL/min/1.73m2); Glucose 88 mg/dL (74-106); HDL Cholesterol 58 mg/dL (>or=50); Magnesium 2.1 mg/dL (1.8-2.4); Potassium 4.3 mmol/L (3.5-5.1); Sodium 145 mmol/L (136-145); Total Protein 7.7 g/dL (6.4-8.2); Triglyceride 173 mg/dL (<150)
[2024-06-21 18:17] LABS: Parathyroid Hormone,Intact 119 pg/mL (19-88)
== END 2024-06-20 14:19 | disposition home or self-care (01) ==
LOC: NCHCN 14:18
PROVIDERS: Visit Provider Nurse Practitioner Family
DX: E78.2 Mixed hyperlipidemia (principal); I10 Essential (primary) hypertension; Z83.3 Family history of diabetes mellitus; E21.3 Hyperparathyroidism, unspecified; E04.1 Nontoxic single thyroid nodule; M79.10 Myalgia, unspecified site
CPT/HCPCS: 80053; 80061; 83036; 83735; 83970; 84443; 85025